=== PATIENT | female | born 1950 | race Caucasian/White ===

== ENCOUNTER 2016-11-28 05:22 | Observation (INO) | payer OTHER ==
[~2016-11-28 05:22] MED LIST: AMIO200T PO; APIX5TAB PO; ASCO500T PO; GABA300C5 PO; GABA600T PO; LOSA100T PO; VITA100018 PO
[2016-11-28] MEDS: POVIDONE IODINE 5% (ANTISEPSIS KIT) 4 APPLICATIONS EACH NARE PRN ×2 (06:00→07:06)
[2016-11-28] MEDS ORDERED: ceFAZolin 2 GM PREMIX 50 ML IV SCH (06:00)
[2016-11-28 06:09] VITALS: BP 160/80; PULSE 72; RESP 18; TEMP 98.6; O2SAT 97
[2016-11-28] MEDS ORDERED: HEPARIN SODIUM - SQ 10,000 UNITS/ML VIAL SQ SCH (06:30)
[2016-11-28] MEDS ORDERED: SODIUM CHLORIDE FLUSH PRN IV FLUSH (06:45)
[2016-11-28] MEDS ORDERED: SUGAMMADEX SODIUM 200 MG/2 ML VIAL IV PUSH ONE ×2 (06:53)
[2016-11-28] MEDS ORDERED: ACETAMINOPHEN 1000 MG/100 ML VIAL IV ONE (06:53)
[2016-11-28] MEDS ORDERED: HYDROmorphone HCL PF 2 MG/ML VIAL ONE (06:53)
[2016-11-28] MEDS ORDERED: DICLOFENAC SODIUM 37.5 MG/ML VIAL IV PUSH ONE (06:53)
[2016-11-28] MEDS ORDERED: SODIUM CHLORID 0.9% 500 ML IV PRN (07:00)
[2016-11-28] MEDS ORDERED: LACTATED RINGER'S 1000 ML IV PRN (07:00)
[2016-11-28] MEDS ORDERED: CHLORHEXIDINE GLUCONATE 2 % 1 PACK (2 CLOTHS) TOPICAL PRN (07:00)
[2016-11-28] MEDS ORDERED: INSULIN HUMAN REGULAR 1,000 UNITS/10 ML VIAL SQ PRN (07:00)
[2016-11-28] MEDS ORDERED: METOPROLOL TARTRATE 25 MG TAB PO PRN (07:00)
[2016-11-28] MEDS ORDERED: FAMOTIDINE 20 MG/2 ML VIAL ONE (07:17)
[2016-11-28] MEDS ORDERED: HEPARIN SODIUM - IV 10,000 UNITS/10 ML VIAL ONE (07:23)
[2016-11-28] MEDS ORDERED: LIDOCAINE 1%/EPINEPHrine 1:100,000 SOLN 50 ML VIAL ONE (07:23)
[2016-11-28] MEDS ORDERED: diphenhydrAMINE HCL 25 MG CAP PO PRN (10:30)
[2016-11-28] MEDS ORDERED: oxyCODONE/ACETAMINOPHEN 5 MG/325 MG TAB PO PRN ×2 (10:30)
[2016-11-28] MEDS ORDERED: HYDROmorphone HCL PF 1 MG/ML VIAL IVP PRN (10:30)
[2016-11-28] MEDS ORDERED: LORazepam 0.5 MG TAB PO PRN (10:30)
[2016-11-28] MEDS ORDERED: ONDANSETRON HCL 4 MG/2 ML VIAL IVP PRN (10:30)
[2016-11-28] MEDS ORDERED: SODIUM CHLORIDE 0.9% FLUSH 10 ML FLUSH IV FLUSH PRN (10:30)
[2016-11-28] MEDS: KETOROLAC TROMETHAMINE 30 MG/ML (IVP) VIAL IVP SCH ×3 (11:00→21:44)
[2016-11-28] MEDS ORDERED: DO NOT ADM ANY ANTICOAGULANT DRUGS PRN (11:15)
[2016-11-28] MEDS: D5-1/2 NS + KCL 20 MEQ INJ 1,000 ML IV SCH ×2 (11:26→21:39)
[2016-11-28] MEDS ORDERED: NORMOSOL R INJ 1,000 ML IV ONE (12:00)
[2016-11-28] MEDS ORDERED: PROPOFOL 200 MG/20 ML AMP IV ONE (12:00)
[2016-11-28] MEDS ORDERED: KETOROLAC TROMETHAMINE 60 MG/2 ML (IM) VIAL IM ONE (12:00)
[2016-11-28] MEDS ORDERED: LACTATED RINGER'S 1000 ML INJ 1,000 ML IV ONE (12:00)
[2016-11-28] MEDS ORDERED: ONDANSETRON HCL 4 MG/2 ML VIAL IV PUSH ONE (12:00)
[2016-11-28] MEDS ORDERED: MIDAZOLAM HCL 2 MG/2 ML VIAL ONE (12:44)
[2016-11-28] MEDS ORDERED: *ONDANSETRON 4 MG VIAL PERIprocedural Use ONLY ONE (12:59)
[2016-11-28 14:00] VITALS: BP 160/75; PULSE 70; RESP 18; TEMP 96.5; O2SAT 93
[2016-11-28] MEDS ORDERED: METOCLOPRAMIDE HCL 10 MG/2 ML VIAL IV ONE (15:30)
[2016-11-28] MEDS ORDERED: LORazepam 2 MG/ML VIAL IV PRN (15:30)
[2016-11-28] MEDS ORDERED: METOCLOPRAMIDE HCL 10 MG/2 ML VIAL IV PRN (15:30)
[2016-11-28 16:00] VITALS: BP 142/78; PULSE 78; RESP 18; TEMP 97.7; O2SAT 94
[2016-11-28 20:00] VITALS: BP 162/75; PULSE 69; RESP 17; TEMP 96.8; O2SAT 93
[2016-11-28] MEDS: SODIUM CHLORIDE FLUSH BID IV FLUSH SCH (21:00)
[2016-11-28] MEDS: SODIUM CHLORIDE 0.9% FLUSH 10 ML FLUSH IV FLUSH SCH (21:00)
[2016-11-28] MEDS ORDERED: GABAPENTIN 300 MG CAP PO SCH (21:00)
[2016-11-29] VITALS: BP 149/65; PULSE 73; RESP 17; TEMP 97.6; O2SAT 94
[2016-11-29 04:00] VITALS: BP 165/73; PULSE 70; RESP 18; TEMP 97.1; O2SAT 98
[2016-11-29] MEDS: KETOROLAC TROMETHAMINE 30 MG/ML (IVP) VIAL IVP SCH (04:26)
[2016-11-29] MEDS: D5-1/2 NS + KCL 20 MEQ INJ 1,000 ML IV SCH (06:17)
--- NOTE | 2016-11-29 06:34 | MP ---
cc: CHINTAN HERNANDEZ MD, JULIE D. MD KIM,KAISER Mallory MD DATE OF SURGERY 11/28/2016 PREOPERATIVE DIAGNOSIS Postmenopausal bleeding. Grade 2 endometrioid adenocarcinoma. POSTOPERATIVE DIAGNOSIS Postmenopausal bleeding. Grade 2 endometrioid adenocarcinoma. PROCEDURE Robotic-assisted laparoscopic hysterectomy, bilateral salpingo-oophorectomy. SURGEON Chintan Hernandez MD FUNNEL [employer]ATER [place] heel sprayer first. ANESTHESIA General endotracheal anesthesia. ESTIMATED BLOOD LOSS 150 cc. IV FLUIDS 2000 cc. URINE OUTPUT 900 cc. HISTORY This is a 66-year-old female with postmenopausal bleeding. Ultrasound showed a thickened endometrial stripe of I believe of 18 mm. CAT scan showed no overt adenopathy or other findings suspicious of malignancy. Endometrial biopsy was performed that showed a grade 2 endometrial adenocarcinoma. She was counseled regarding these findings, treatment recommendations and presents now for surgical management. FINDINGS The uterus was retroverted, sounded to 9 cm, grossly appeared normal. Tubes and ovaries grossly appeared normal. There was no appreciably enlarged pelvic or para-aortic lymph nodes. The peritoneal surfaces were smooth. The liver diaphragm edges were smooth. Omentum, large, small bowel and adjacent mesentery were normal with no implants. There were some diverticulum without evidence of diverticulitis. She had some mild adhesions in the pelvis. The colon was mildly adherent to the left pelvic sidewall. The uterus once removed was evaluated by pathologist. The tumor was approximately 2.5 cm in diameter and was very superficial in the myometrium, estimated depth of invasion only approximately 10%. There was no endocervical extension. STATEMENT OF COMPLEXITY Complexity was increased due to increased BMI. Modifier should be applied accordingly. PROCEDURE The patient was taken to the operating room, placed in dorsal lithotomy position after general endotracheal anesthesia was administered. Time-out was undertaken. The patient was identified by sight recognition and hospital ID bracelet and the proposed procedure was reviewed and confirmed. She was carefully positioned in padded Marlon stirrups. Her arms were padded and secured to the sides. She was further secured to the operating table with eggcrate padding and tape in across chest, over the shoulder fashion. All sites were noted be properly aligned with no malalignments or pressure points. Careful positioning was used as a magnet was placed over her defibrillator pacemaker to prevent erroneous firing from use of cautery. She was prepped in sterile fashion, draped below the waist, placed in high lithotomy position. The cervix was grasped, uterine cavity was sounded, dilated and a large V-Care manipulator was inserted and secured in the usual fashion, a David catheter placed in the bladder. She was returned to low lithotomy position. Change of sterile gloves was undertaken. We completed draping in anticipation of laparoscopy, confirmed that an orogastric tube was in the stomach on suction. With manual elevation of the abdominal wall and direct laparoscopic visualization, a 5-mm cannula was placed in the left upper quadrant and atraumatic entry was confirmed. Carbon dioxide gas was insufflated and under laparoscopic visualization a 12-mm cannula placed in midline above the umbilicus, an 8-mm cannula placed in the right upper quadrant and left lateral quadrant, the original 5 changed for a 8-mm cannula. She was placed in steep Trendelenburg position. Peritoneal washings were obtained for cytology. The anatomy was surveyed with findings as described above. A couple of filmy adhesions were taken down. The small bowel was folded back on its mesenteric root. The mobile portion of the redundant colon was lifted out of the pelvis and cul-de-sac and three Ray-Annmarie sponges were placed around the root of the small bowel mesentery. Robotic system brought into the operative field and attached in the usual fashion. Monopolar scissors, fenestrated bipolar forceps and ProGrasp manipulators were placed in arms #1, 2 and 3 respectively and I took my place at the surgeon's console. Monopolar scissors, fenestrated bipolar forceps and ProGrasp manipulators were placed in arms #1, 2 and 3 and I took my place at the surgeon's console. The right round ligament was isolated, cauterized, transected. The anterior and posterior leaves of the broad ligament were opened. The right ureter was identified, the right infundibulopelvic ligament was isolated to the level of the pelvic brim where it was cauterized and transected. Posterior peritoneum was opened along the right side of the uterus and cervix and the right vesicouterine peritoneum was dissected off the lower uterine segment and cervix. Right uterine vessels were skeletonized, cauterized and transected as were the cardinal, paracervical and uterosacral ligaments. Attention was directed toward the left side. Lysis of adhesions was taken down with sharp dissection to mobilize the colon and free its attachments against left pelvic sidewall and to gain access to the retroperitoneal structures. Left round ligament isolated, cauterized, transected. The anterior and posterior leaves of the broad ligament were opened. The left ureter was identified, the left infundibulopelvic ligament was isolated to the level of the pelvic brim it where was cauterized and transected. Posterior peritoneum was opened along the left side of uterus and cervix and the left vesicouterine peritoneum dissected off the lower uterine segment and cervix. Left uterine vessels were skeletonized, cauterized and transected as were the cardinal, paracervical and uterosacral ligaments. Colpotomy was performed the cervix from the upper vagina and the specimen was withdrawn transvaginally which included uterus, cervix, tubes and ovaries and a pneumooccluder balloon was placed in the vagina to maintain pneumoperitoneum. Instruments 1 and 3 were exchanged for needle drivers as a 0 Vicryl suture was introduced. The vaginal cuff was closed starting at the left corner, full-thickness closure including the posterior uterosacral ligament and edge of the peritoneum, tied via instrument tie. The closure was held on countertraction as a running, continuous full-thickness closure was carried across the vaginal cuff to the contralateral corner where it was similarly secured, tied, the needle was cut and removed. Pelvis was irrigated thoroughly. Small bleeders rendered hemostatic with bipolar cautery. There was a good margin between the bladder edge and the vaginal cuff suture line. Good peristalsis of ureters. The bladder wall integrity was intact and to assist in hemostasis Robert powder was placed across the vaginal cuff and pelvic sidewall. Visual inspection of the pelvis bilaterally in the para-aortic region revealed no adenopathy and the preliminary pathology came back showing a very small, minimally invasive tumor and, as per our preoperative discussion, she was apprehensive about lymphedema and in the absence of high-risk factors we agreed to forego lymphadenectomy as the morbidity was thought to potentially exceed the benefit. Based on these early pathology findings and our discussion, it was felt that all reasonable surgical objectives had been completed. The robotic instruments were removed. The robotic system was disengaged from the operative field. I reentered the bedside under sterile condition. Each of the three Ray-Annmarie sponges that had been placed were now removed. Each were removed individually and inspected and noted to be removed in their entirety. Visual inspection confirmed no remaining foreign objects in the peritoneal cavity. Preliminary counts were correct. The 12-mm fascial defect was closed with interrupted 0 Vicryl sutures using a needle pass apparatus. They were tied securely. This was done under direct laparoscopic visualization and this rendered the fascia completely airtight and hemostatic. The remaining cannulas were withdrawn. Carbon dioxide gas was removed from the peritoneal cavity. 3-0 Vicryl subcutaneous, 3-0 Vicryl subcuticular and Steri-Strips were placed over the incision as it had been confirmed that she had no known skin adhesive sensitivity to Steri-Strips. She was returned to dorsal supine position. Pelvic exam confirmed the vaginal cuff was well supported and hemostatic. There were no vaginal lacerations. The remaining Robert powder was placed across the vaginal cuff suture line and silver nitrate was used at the introitus with superficial mucosal irritation. There were no remaining foreign objects in the vagina. Preliminary and final counts were now correct. She was returned to dorsal supine position and was pending reversal of anesthesia when I left the operating room to precede her to the Post-Anesthesia Care Unit. MD LARS Mays/SSB /10:42 AM /6:16 AM
[2016-11-29 06:56] LABS: AUTOMATED NEUTROPHIL # 13.9 TH/MM3 (1.8-7.7); BASOPHIL % 0.1 % (0.0-2.0); HEMATOCRIT 35.8 % (35.0-46.0); HEMO FLAGS DIFF FINAL; LYMPHOCYTE # 1.3 TH/MM3 (1.0-4.8); MEAN CELL VOLUME 86.9 FL (80.0-100.0); MEAN CORPUSCULAR HEMOGLOBIN 29.9 PG (27.0-34.0); MEAN CORPUSCULAR HGB CONC 34.4 % (32.0-36.0); MONO % 9.7 % (0.0-8.0); NEUT % 82.2 % (16.0-70.0); PLATELET COUNT 244 TH/MM3 (150-450); RED BLOOD COUNT 4.12 MIL/MM3 (4.00-5.30); RED CELL DISTRIBUTION WIDTH 13.3 % (11.6-17.2); WHITE BLOOD COUNT 16.9 TH/MM3 (4.0-11.0)
[2016-11-29] MEDS ORDERED: OXYC1TAB63 PO (07:19)
[2016-11-29 07:27] LABS: BICARBONATE 26.1 MEQ/L (21.0-32.0); POTASSIUM 4.1 MEQ/L (3.5-5.1)
[2016-11-29 08:38] VITALS: BP 157/67; PULSE 68; RESP 18; TEMP 96.2; O2SAT 92
[2016-11-29] MEDS ORDERED: AMIODARONE 200 MG TAB PO SCH (09:00)
[2016-11-29] MEDS ORDERED: GABAPENTIN 300 MG CAP PO SCH (09:00)
[2016-11-29] MEDS ORDERED: LOSARTAN 50 MG TAB PO SCH (09:00)
[2016-11-29] MEDS: SODIUM CHLORIDE FLUSH BID IV FLUSH SCH (09:00)
[2016-11-29] MEDS: SODIUM CHLORIDE 0.9% FLUSH 10 ML FLUSH IV FLUSH SCH (10:31)
[2016-11-29 12:28] VITALS: BP 151/70; PULSE 70; RESP 18; TEMP 97.7; O2SAT 97
[2016-11-29] MEDS ORDERED: LOSA100T PO (15:22)
[2016-11-29 16:26] VITALS: BP 120/58; PULSE 69; RESP 18; TEMP 97.3; O2SAT 96
[2016-11-30] MEDS ORDERED: FAMO20TA2 PO (14:38)
[2016-11-30] MEDS ORDERED: CALC500C16 CHEW (14:38)
--- NOTE | 2016-12-03 11:57 | MD ---
cc: CHINTAN HERNANDEZ MD, JULIE D. MD KIM,KAISER Mallory MD ADMISSION DATE: 11/28/2016 DISCHARGE DATE: 11/29/2016 PROCEDURE 11/28/2016 Robotic-assisted laparoscopic hysterectomy, bilateral salpingo-oophorectomy. DIAGNOSIS Endometrial cancer. HOSPITAL COURSE She did well during the first 24 hours post-op. In's and out's 2320/2450. Labs on post-op day #1, H&H 12.3 and 35.8, platelets 244. Electrolytes pending at the time of this dictation. PHYSICAL EXAMINATION VITAL SIGNS: Afebrile. Pulse 69-78, respirations 15-18, blood pressure 134-165/65-75. O2 saturations while awake 98%. GENERAL: Alert and oriented x3. LUNGS: Clear at apices. Mild basilar rales. CARDIOVASCULAR: Regular rate and rhythm. ABDOMEN: Soft. Incisions clean and dry. TERRAZZO LAYER: No bleeding. EXTREMITIES: Nontender. ASSESSMENT Post-op day #1. FINDINGS Preliminary pathology discussed and reviewed. Activities and restrictions reviewed. Questions answered. She is tolerating oral intake. David catheter has been removed pending voiding. Hemodynamically stable, doing well. PLAN Therefore I anticipate discharge to home. She is to contact our office to schedule follow-up within 2 weeks. She is to resume prior medications. She will have a prescription for Percocet. She is to contact our office between now and the time of scheduled follow-up should she have any questions or problems. MD LARS Mays/RADHA /7:24 AM /11:51 AM
[2017-01-03] MEDS ORDERED: GABA300C5 PO (15:52)
[2017-01-06] MEDS ORDERED: GABA300C5 PO (14:46)
== END 2016-11-29 17:09 | disposition home or self-care (01) ==
LOC: HSDC 05:22 → HSDI 10:21 → HOCB 14:33
PROVIDERS: ADMIT Obstetrics & Gynecology Gynecologic Oncology; ATTEND Obstetrics & Gynecology Gynecologic Oncology
DX: C54.1 Malignant neoplasm of endometrium (principal); N73.6 Female pelvic peritoneal adhesions (postinfective); N95.0 Postmenopausal bleeding; I48.91 Unspecified atrial fibrillation; I10 Essential (primary) hypertension
CPT/HCPCS: 00840; 58552; 80048; 85025; 86850; 86900; 86901; 88112; 88309; 88331; 94150; G0378; J0131; J0690; J1170; J1644; J1885; J2250; J2405; J2765; J3010; J3480; J7120; 88307; 88321; J1130

== ENCOUNTER 2016-11-30 00:42 | Observation (INO) | payer OTHER ==
[2016-11-30] VITALS (11 sets, daily range): BP systolic 129–263; BP diastolic 66–135; PULSE 70–91; RESP 16–20; TEMP 97.6–98.6; O2SAT 92–99
[~2016-11-30] VITALS: Ht 160 cm; Wt 100.0 kg
[~2016-11-30 00:42] MED LIST changes: +OXYC1TAB63 PO
[2016-11-30] MEDS ORDERED: SODIUM CHLOR 0.9% 1000 ML INJ 1,000 ML IV SCH ×2 (01:09→06:25)
[2016-11-30] MEDS ORDERED: SODIUM CHLORIDE 0.9% FLUSH 10 ML FLUSH IV FLUSH PRN ×2 (01:15→06:30)
[2016-11-30] MEDS ORDERED: HYDROmorphone HCL PF 1 MG/ML VIAL IVS ONE (01:15)
[2016-11-30] MEDS ORDERED: ONDANSETRON HCL 4 MG/2 ML VIAL IVP ONE (01:15)
[2016-11-30 01:50] LABS: AUTOMATED NEUTROPHIL # 12.5 TH/MM3 (1.8-7.7); BASOPHIL # 0.1 TH/MM3 (0-0.2); BASOPHIL % 0.4 % (0.0-2.0); EOSINOPHIL % 0.1 % (0.0-4.0); HEMATOCRIT 41.6 % (35.0-46.0); HEMO FLAGS DIFF FINAL; LYMPH % 11.8 % (9.0-44.0); LYMPHOCYTE # 1.9 TH/MM3 (1.0-4.8); MEAN CELL VOLUME 87.4 FL (80.0-100.0); MEAN CORPUSCULAR HEMOGLOBIN 28.3 PG (27.0-34.0); MEAN CORPUSCULAR HGB CONC 32.4 % (32.0-36.0); MONO % 9.7 % (0.0-8.0); PLATELET COUNT 255 TH/MM3 (150-450); RED BLOOD COUNT 4.76 MIL/MM3 (4.00-5.30); RED CELL DISTRIBUTION WIDTH 13.9 % (11.6-17.2)
[2016-11-30 01:59] LABS: ALT (GPT) 26 U/L (10-53); ANION GAP 9 MEQ/L (5-15); AST (GOT) 19 U/L (15-37); BLOOD UREA NITROGEN 18 MG/DL (7-18); CHLORIDE 107 MEQ/L (98-107); GLOMERULAR FILTRATION RATE 68 ML/MIN (>89); POTASSIUM 3.8 MEQ/L (3.5-5.1); SODIUM (NA) 141 MEQ/L (136-145)
[2016-11-30 02:01] LABS: ALKALINE PHOSPHATASE 109 U/L (45-117); TOTAL BILIRUBIN ADULT 0.6 MG/DL (0.2-1.0)
[2016-11-30 02:07] LABS: APTT (PATIENT) 27.3 SEC (24.3-30.1); INTERNATIONAL NORMALIZED RATIO 0.9 RATIO; PROTHROMBIN TIME - PATIENT 10.2 SEC (9.8-11.6)
--- NOTE | 2016-11-30 02:38 | PD ---
HPI Chief Complaint: Chest Pain Time Seen by Provider: 01:09 Travel History International Travel<30 days: No Contact w/Intl Traveler<30days: No Traveled to known affect area: No History of Present Illness HPI 66-year-old female complains of retrosternal chest pain for about 6 hours. No radiation. She also has shortness of breath and dizziness. She underwent hysterectomy yesterday. She notes vomiting a few times yesterday and believes it may be related to her symptoms. Director Digital Strategy was Dr Scales. [facility] Past Medical History Asthma: No Autoimmune Disease: Yes (SARCOIDOSIS) Blood Disorders: No Heart Rhythm Problems: Yes (A fib, v tach) Cancer: Yes (uterine ca, thyroid ca) Cardiovascular Problems: Yes High Cholesterol: No Chemotherapy: No Chest Pain: No Congestive Heart Failure: No COPD: No Diabetes: No Endocrine: Yes Fibromyalgia: Yes Genitourinary: Yes (uterine ca. ) Hepatitis: No Hiatal Hernia: No Hypertension: Yes Immune Disorder: Yes (sarcoidosis) Implanted Vascular Access Dvce: Yes Musculoskeletal: No Neurologic: Yes Psychiatric: No Reproductive: No Respiratory: Yes Radiation Therapy: No Sleep Apnea: Yes Thyroid Disease: Yes (nodules removed) Menopausal: Yes : 2 Para: 2 Past Surgical History Abdominal Surgery: No AICD: Yes (MEDTRONIC) Body Medical Devices: aicd Ear Surgery: No Endocrine Surgery: Yes (PARTIAL THYROIDECTOMY) Eye Surgery: No Genitourinary Surgery: No Gynecologic Surgery: No Hysterectomy: Yes Joint Replacement: No Oral Surgery: No Pacemaker: Yes Thoracic Surgery: Yes (PACER/ICD 07/2016,BREAST SURGERY RIGHT AND LEFT X5) Other Surgery: Yes (aicd placement, cardiac cath, lumpectomies x5, thyroid surgery-nodules rem) Social History Alcohol Use: No Tobacco Use: No Substance Use: No Allergies-Medications (Allergen,Severity, Reaction): Coded Allergies: Adhesives (Verified Allergy, Severe, SKIN RASH, 04/24/09) CRESTOR (Verified Allergy, Severe, Anaphylaxis, 11/28/16) Contrast Media (Verified Allergy, Severe, taccycardia, 11/28/16) Reported Meds & Prescriptions Reported Meds & Active Scripts Active Losartan (Losartan Potassium) 100 Mg Tab 100 Mg PO DAILY Oxycodone-Acetaminophen 5-325 mg Tab 1 Tab PO Q4H PRN Reported Vitamin D3 (Cholecalciferol) 1,000 Unit Tab 1,000 Units PO DAILY Gabapentin 600 Mg Tab 600 Mg PO HS Gabapentin 300 Mg Cap 300 Mg PO DAILY Eliquis (Apixaban) 5 Mg Tab 5 Mg PO BID Amiodarone (Amiodarone HCl) 200 Mg Tab 200 Mg PO DAILY Ascorbic Acid 500 Mg Tab 500 Mg PO DAILY Review of Systems Except as stated in HPI: all other systems reviewed are Neg Physical Exam Narrative GENERAL: 66 yo F, WNWD, moderate distress SKIN: Warm and dry. HEAD: Atraumatic. Normocephalic. EYES: Pupils equal and round. No scleral icterus. No injection or drainage. ENT: No nasal bleeding or discharge. Mucous membranes pink and moist. NECK: Trachea midline. No JVD. CARDIOVASCULAR: Regular rate and rhythm. RESPIRATORY: No accessory muscle use. Clear to auscultation. Breath sounds equal bilaterally. GASTROINTESTINAL: Soft. Diffuse TTP. MUSCULOSKELETAL: Extremities without clubbing, cyanosis, or edema. No obvious deformities. NEUROLOGICAL: Awake and alert. No obvious cranial nerve deficits. Motor grossly within normal limits. Five out of 5 muscle strength in the arms and legs. Normal speech. PSYCHIATRIC: Appropriate mood and affect; insight and judgment normal. Data Data Last Documented VS Vital Signs Date Time Temp Pulse Resp B/P Pulse Ox O2 Delivery O2 Flow Rate FiO2 11/30/16 06:08 76 18 168/72 95 Nasal Cannula 2 11/30/16 00:44 97.6 Orders Complete Blood Count With Diff (11/30/16 01:09) Comprehensive Metabolic Panel (11/30/16 01:09) Lipase (11/30/16 01:09) Prothrombin Time / Inr (Pt) (11/30/16 01:09) Act Partial Throm Time (Ptt) (11/30/16 01:09) Urinalysis - C+S If Indicated (11/30/16 01:09) Iv Access Insert/Monitor (11/30/16 01:09) Ecg Monitoring (11/30/16 01:09) Oximetry (11/30/16 01:09) Ondansetron Inj (Zofran Inj) (11/30/16 01:15) Sodium Chlor 0.9% 1000 Ml Inj (Ns 1000 M (11/30/16 01:09) Sodium Chloride 0.9% Flush (Ns Flush) (11/30/16 01:15) Electrocardiogram (11/30/16 01:09) Hydromorphone Pf Inj (Dilaudid Pf Inj) (11/30/16 01:15) Ventilation & Perfusion Scan (11/30/16 01:11) Ct Abd/Pel W/O Iv Contrast (11/30/16 01:46) Chest, Single Ap (11/30/16 ) Troponin I (11/30/16 03:48) Troponin I (11/30/16 04:52) Hydromorphone Pf Inj (Dilaudid Pf Inj) (11/30/16 05:15) Electrocardiogram (11/30/16 ) Aspirin (Aspirin) (11/30/16 05:30) Nitroglycerin Sl (Nitrostat Sl) (11/30/16 05:30) Admit Order (Ed Use Only) (11/30/16 06:14) Consult Supervisor Fur Floor Worker Oncology (11/30/16 ) Labs Laboratory Tests Test 11/30/16 11/30/16 11/30/16 01:35 04:30 05:00 White Blood Count 16.0 TH/MM3 Red Blood Count 4.76 MIL/MM3 Hemoglobin 13.5 GM/DL Hematocrit 41.6 % Mean Corpuscular Volume 87.4 FL Mean Corpuscular Hemoglobin 28.3 PG Mean Corpuscular Hemoglobin 32.4 % Concent Red Cell Distribution Width 13.9 % Platelet Count 255 TH/MM3 Mean Platelet Volume 8.1 FL Neutrophils (%) (Auto) 78.0 % Lymphocytes (%) (Auto) 11.8 % Monocytes (%) (Auto) 9.7 % Eosinophils (%) (Auto) 0.1 % Basophils (%) (Auto) 0.4 % Neutrophils # (Auto) 12.5 TH/MM3 Lymphocytes # (Auto) 1.9 TH/MM3 Monocytes # (Auto) 1.6 TH/MM3 Eosinophils # (Auto) 0.0 TH/MM3 Basophils # (Auto) 0.1 TH/MM3 CBC Comment DIFF FINAL Differential Comment Prothrombin Time 10.2 SEC Prothromb Time International 0.9 RATIO Ratio Activated Partial 27.3 SEC Thromboplast Time Sodium Level 141 MEQ/L Potassium Level 3.8 MEQ/L Chloride Level 107 MEQ/L Carbon Dioxide Level 25.0 MEQ/L Anion Gap 9 MEQ/L Blood Urea Nitrogen 18 MG/DL Creatinine 0.84 MG/DL Estimat Glomerular Filtration 68 ML/MIN Rate Random Glucose 124 MG/DL Calcium Level 9.0 MG/DL Total Bilirubin 0.6 MG/DL Aspartate Amino Transf 19 U/L (AST/SGOT) Alanine Aminotransferase 26 U/L (ALT/SGPT) Alkaline Phosphatase 109 U/L Troponin I 0.02 NG/ML 0.05 NG/ML Total Protein 7.9 GM/DL Albumin 3.8 GM/DL Lipase 90 U/L Urine Color LIGHT-YELLOW Urine Turbidity CLEAR Urine pH 6.0 Urine Specific Pelsor 1.010 Urine Protein NEG mg/dL Urine Glucose (UA) NEG mg/dL Urine Ketones 10 mg/dL Urine Occult Blood SMALL Urine Nitrite NEG Urine Bilirubin NEG Urine Urobilinogen LESS THAN 2.0 MG/DL Urine Leukocyte Esterase MOD Urine RBC 4 /hpf Urine WBC 3 /hpf Urine Squamous Epithelial <1 /hpf Cells Microscopic Urinalysis Comment CULT NOT INDICATED MDM Medical Decision Making Medical Screen Exam Complete: Yes Emergency Medical Condition: Yes Differential Diagnosis NSTEMI, unstable angina, coronary vasospasm, PE, PTX, aortic dissection, pericarditis, myocarditis, endocarditis, PNA, esophageal disease, aneurysm, musculoskeletal etiologies, anxiety, cocaine/sympathomimetic abuse Narrative Course CBC & BMP Diagram 11/30/16 01:35 LFTs normal Tn 0.02 Second Tn 0.05 UA: no UTI INR 0.9 EKG: Sinus rate 89 normal axis intervals no ischemic injury Last 24 hours Impressions Abdomen/Pelvis CT 11/30/16 0146 Signed Impressions: Service Date/Time: Wednesday, November 30, 2016 02:57 - CONCLUSION: 1. Postoperative hysterectomy, reportedly one day ago. There is some residual air in the soft tissues of the lower pelvis and in the anterior abdominal wall. No free intraperitoneal air is identified. Trace free fluid in the pelvis. 2. No bowel obstruction. No adenopathy. Gallbladder sludge present. Panda Paul MD Lung Scan- Nuclear Medicine 11/30/16 0111 Signed Impressions: Service Date/Time: Wednesday, November 30, 2016 02:26 - CONCLUSION: 1. Negative for pulmonary embolus. Panda Paul MD Chest X-Ray 11/30/16 0000 Signed Impressions: Service Date/Time: Wednesday, November 30, 2016 03:04 - CONCLUSION: 1. Minimal basilar atelectasis. Panda Paul MD Admission for serial enzymes. Pain controlled. d/w Dr Eller. Consult placed for Dr Scales. Diagnosis Primary Impression: Chest pain Qualified Code: R07.9 - Chest pain, unspecified type Additional Impression: Elevated troponin Admitting Information Admitting Physician Requests: Tj Diaz MD November 30, 2016 02:38
--- NOTE | 2016-11-30 02:58 | RADRPT ---
EXAM DATE/TIME: 11/30/2016 02:26 [facility] COMPARISON: No previous studies available for comparison. INDICATIONS : Short of breath for 1 day. DOSE: 8.1 mCi Tc99m MAA IV 1.4 mCi Tc99m DTPA aerosol MEDICAL HISTORY : Carcinoma, thyroid. Uterine cancer. SURGICAL HISTORY : Pacemaker. Thyroidectomy. Hysterectomy. ENCOUNTER: Initial ACUITY: 1 day PAIN SCALE: 2/10 LOCATION: Bilateral chest TECHNIQUE: Following five minutes of tidal breathing of DTPA aerosol, planar images of the lungs were performed in eight projections. The patient was then injected with MAA, and eight-view perfusion scan was perf ormed. FINDINGS: There is a homogeneous pattern of aerosol delivery to the periphery of both lungs. No focal ventilat ory defects are seen. The perfusion lung scan demonstrates a homogenous pattern of uptake in both lungs. No segmental or s ubsegmental defects are seen. CONCLUSION: 1. Negative for pulmonary embolus. Panda Paul MD on November 30, 2016 at 2:56 Board Certified Radiologist. This report was verified electronically.
--- NOTE | 2016-11-30 03:17 | RADRPT ---
EXAM DATE/TIME: 11/30/2016 02:57 [facility] COMPARISON: No previous studies available for comparison. INDICATIONS : Abdominal pain status post hysterectomy, one day. ORAL CONTRAST: No oral contrast ingested. RADIATION DOSE: 25.37 CTDIvol (mGy) MEDICAL HISTORY : Carcinoma, thyroid. Hypertension. Sarcoidosis. Carcinoma, uterine. SURGICAL HISTORY : Hysterectomy. Pacemaker. ENCOUNTER: Initial ACUITY: 1 day PAIN SCALE: 5/10 LOCATION: abdomen TECHNIQUE: Volumetric scanning of the abdomen and pelvis was performed. Using automated exposure control and ad justment of the mA and/or kV according to patient size, radiation dose was kept as low as reasonably achievable to obtain optimal diagnostic quality images. FINDINGS: There is mild atelectasis and scarring at the lung bases. Pacer lead tip in right ventricle. No acute findings in the liver, spleen, adrenals, kidneys or pancreas. There is dependent sludge with in the gallbladder. No biliary ductal dilatation. There is air in the anterior abdominal wall presumably related to recent hysterectomy. No free intrap eritoneal air is identified. No bowel obstruction. Trace free fluid in the pelvis. CONCLUSION: 1. Postoperative hysterectomy, reportedly one day ago. There is some residual air in the soft tissues of the lower pelvis and in the anterior abdominal wall. No free intraperitoneal air is identified. T race free fluid in the pelvis. 2. No bowel obstruction. No adenopathy. Gallbladder sludge present. Panda Paul MD on November 30, 2016 at 3:10 Board Certified Radiologist. This report was verified electronically.
--- NOTE | 2016-11-30 03:23 | RADRPT ---
EXAM DATE/TIME: 11/30/2016 03:04 [facility] COMPARISON: No previous studies available for comparison. INDICATIONS : Shortness of breath. MEDICAL HISTORY : Carcinoma, thyroid. Carcinoma, uterine. SURGICAL HISTORY : Pacemaker. Hysterectomy. Thyroidectomy. ENCOUNTER: Initial ACUITY: 1 day PAIN SCORE: 0/10 LOCATION: Bilateral chest FINDINGS: A single view of the chest demonstrates pacer lead overlying right ventricle. Cardiomegaly. Minimal b allie atelectasis. CONCLUSION: 1. Minimal basilar atelectasis. Panda Paul MD on November 30, 2016 at 3:16 Board Certified Radiologist. This report was verified electronically.
[2016-11-30] MEDS ORDERED: HYDROmorphone HCL PF 1 MG/ML VIAL IV PUSH ONE (05:15)
[2016-11-30 05:28] LABS: BLOOD, URINE SMALL (NEG); COMMENT (UR) CULT NOT INDICATED; CULTURE IF INDICATED CULT NOT INDICATED; GLUCOSE,URINE NEG (NEG); KETONE, URINE 10 mg/dL (NEG); NITRITE,URINE NEG (NEG); SQUAMOUS EPITHELIAL CELL URINE <1 /hpf (0-5); URINE COLOR LIGHT-YELLOW (YELLW/STRAW)
[2016-11-30] MEDS ORDERED: ASPIRIN 325 MG TAB PO ONE (05:30)
[2016-11-30] MEDS: NITROGLYCERIN 0.4 MG SL 25 TABS/BTL SL SCH ×3 (05:41→06:07)
[2016-11-30] MEDS ORDERED: oxyCODONE/ACETAMINOPHEN 5 MG/325 MG TAB PO PRN ×2 (06:30)
[2016-11-30] MEDS ORDERED: HYDROmorphone HCL PF 1 MG/ML VIAL IV PUSH PRN (06:30)
[2016-11-30] MEDS ORDERED: BISACODYL 10 MG SUPP RECTAL PRN (06:30)
[2016-11-30] MEDS ORDERED: ACETAMINOPHEN 325 MG TAB PO PRN (06:30)
[2016-11-30] MEDS ORDERED: NITROGLYCERIN 2% OINT 1 GM PACKET TOPICAL PRN (06:30)
[2016-11-30] MEDS ORDERED: ONDANSETRON HCL 4 MG/2 ML VIAL IVP PRN (06:30)
[2016-11-30] MEDS ORDERED: ENALAPRILAT 1.25 MG/ML VIAL IV PRN (08:00)
[2016-11-30] MEDS ORDERED: cloNIDine HCL 0.1 MG TAB PO PRN (08:00)
[2016-11-30] MEDS ORDERED: NS + KCL 20 MEQ INJ 1,000 ML IV SCH (08:00)
[2016-11-30] MEDS ORDERED: APIXABAN 5 MG TABLET PO SCH (09:00)
[2016-11-30] MEDS ORDERED: GABAPENTIN 300 MG CAP PO SCH ×2 (09:00→21:00)
[2016-11-30] MEDS ORDERED: SODIUM CHLORIDE 0.9% FLUSH 10 ML FLUSH IV FLUSH SCH (09:00)
[2016-11-30] MEDS ORDERED: ASCORBIC ACID 500 MG TAB PO SCH (09:00)
[2016-11-30] MEDS ORDERED: CHOLECALCIFEROL (VIT D3) 1000 UNIT TAB PO SCH (09:00)
[2016-11-30] MEDS ORDERED: AMIODARONE 200 MG TAB PO SCH (09:00)
[2016-11-30] MEDS ORDERED: FAMOTIDINE 20 MG TAB PO SCH (14:15)
[2016-11-30] MEDS ORDERED: ALUMINUM/MAGNESIUM/SIMETH 30 ML CUP PO PRN (14:15)
[2016-11-30] MEDS ORDERED: CALCIUM CARBONATE 500 MG CHEWABLE TAB CHEW PRN (14:15)
--- NOTE | 2016-11-30 14:34 | HHI.HP ---
HPI Service [facility] Primary Care Physician Azeb King MD Admission Diagnosis Chest Pain; Elevated Tn Diagnoses: Chief Complaint: Chest pain Travel History International Travel<30 Days: No Contact w/Intl Traveler <30 Da: No Traveled to Known Affected Are: No History of Present Illness This is a 66-year-old female who presented with retrosternal chest pain for about 6 hours relieved after receiving aspirin, Zofran, nitroglycerin and Dilaudid in the emergency department. Patient was just released from this hospital after undergoing hysterectomy 2 days ago. During the day of surgery, patient had several episodes of vomiting and was discharged home improved. A few hours after she arrived home, she developed indigestion/gas pain scale of 9 out of 10 without radiation and associated signs and symptoms of nausea, vomiting, palpitations, shortness of breath, dizziness and diaphoresis. Patient has history of fibromyalgia, uterine cancer, sarcoidosis, sleep apnea, hypertension, A. fib and V. tach diagnosed in July 2016. She underwent AICD placement and unremarkable cardiac catheterization by Dr. Maldonado. States she has been doing well on amiodarone. She was taken off Eliquis 3 months ago because of uterine bleeding. At this time, she feels better and wants to go home. Earlier right after lunch she developed mild indigestion scale of 5 out of 10 Review of Systems Except as stated in HPI: all other systems reviewed are Neg Past Family Social History Past Medical History As previously mentioned Past Surgical History As previously mentioned. Partial thyroidectomy breast surgery Reported Medications Vitamin D3 (Cholecalciferol) 1,000 Unit Tab 1,000 Units PO DAILY Gabapentin 600 Mg Tab 600 Mg PO HS Gabapentin 300 Mg Cap 300 Mg PO DAILY Eliquis (Apixaban) 5 Mg Tab 5 Mg PO BID (patient has not taken for 3 months) Amiodarone (Amiodarone HCl) 200 Mg Tab 200 Mg PO DAILY Ascorbic Acid 500 Mg Tab 500 Mg PO DAILY Allergies: Coded Allergies: Adhesives (Verified Allergy, Severe, SKIN RASH, 04/24/09) CRESTOR (Verified Allergy, Severe, Anaphylaxis, 11/28/16) Contrast Media (Verified Allergy, Severe, taccycardia, 11/28/16) Family History A. fib Social History Does not smoke or drink Physical Exam Vital Signs Vital Signs Date Time Temp Pulse Resp B/P Pulse Ox O2 Delivery O2 Flow Rate FiO2 11/30/16 11:42 98.6 82 18 129/66 95 11/30/16 07:20 98.1 82 17 156/71 98 Room Air 11/30/16 07:20 82 17 98 Room Air 11/30/16 07:00 16 11/30/16 06:08 76 18 168/72 95 Nasal Cannula 2 11/30/16 05:48 87 16 174/80 94 Nasal Cannula 2 11/30/16 05:22 89 16 188/86 99 Nasal Cannula 2 11/30/16 01:17 90 20 263/135 95 Room Air 11/30/16 01:04 91 20 95 11/30/16 00:44 97.6 90 20 247/110 95 Physical Exam GENERAL: This is a well-nourished, well-developed patient, in no apparent distress. SKIN: No rashes, ecchymoses or lesions. Cool and dry. HEAD: Atraumatic. Normocephalic. No temporal or scalp tenderness. EYES: Pupils equal round and reactive. Extraocular motions intact. No scleral icterus. No injection or drainage. ENT: Nose without bleeding, purulent drainage or septal hematoma. Throat without erythema, tonsillar hypertrophy or exudate. Uvula midline. Airway patent. NECK: Trachea midline. No JVD or lymphadenopathy. Supple, nontender, no meningeal signs. CARDIOVASCULAR: Regular rate and rhythm without murmurs, gallops, or rubs. No chest wall tenderness RESPIRATORY: Clear to auscultation. Breath sounds equal bilaterally. No wheezes , rales, or rhonchi. GASTROINTESTINAL: Abdomen soft, non-tender, nondistended. No guarding. Trocar sites without signs of infection MUSCULOSKELETAL: Extremities without clubbing, cyanosis, or edema. No joint tenderness, effusion, or edema noted. No calf tenderness. Negative Homans sign bilaterally. NEUROLOGICAL: Awake and alert. Cranial nerves II through XII intact. Motor and sensory grossly within normal limits. Five out of 5 muscle strength in all muscle groups. Normal speech. Laboratory Laboratory Tests Test 11/30/16 11/30/16 11/30/16 11/30/16 01:35 04:30 05:00 12:51 White Blood Count 16.0 Red Blood Count 4.76 Hemoglobin 13.5 Hematocrit 41.6 Mean Corpuscular Volume 87.4 Mean Corpuscular Hemoglobin 28.3 Mean Corpuscular Hemoglobin 32.4 Concent Red Cell Distribution Width 13.9 Platelet Count 255 Mean Platelet Volume 8.1 Neutrophils (%) (Auto) 78.0 Lymphocytes (%) (Auto) 11.8 Monocytes (%) (Auto) 9.7 Eosinophils (%) (Auto) 0.1 Basophils (%) (Auto) 0.4 Neutrophils # (Auto) 12.5 Lymphocytes # (Auto) 1.9 Monocytes # (Auto) 1.6 Eosinophils # (Auto) 0.0 Basophils # (Auto) 0.1 CBC Comment DIFF FINAL Differential Comment Prothrombin Time 10.2 Prothromb Time International 0.9 Ratio Activated Partial 27.3 Thromboplast Time Sodium Level 141 Potassium Level 3.8 Chloride Level 107 Carbon Dioxide Level 25.0 Anion Gap 9 Blood Urea Nitrogen 18 Creatinine 0.84 Estimat Glomerular Filtration 68 Rate Random Glucose 124 Calcium Level 9.0 Total Bilirubin 0.6 Aspartate Amino Transf 19 (AST/SGOT) Alanine Aminotransferase 26 (ALT/SGPT) Alkaline Phosphatase 109 Troponin I 0.02 0.05 0.06 Total Protein 7.9 Albumin 3.8 Lipase 90 Urine Color LIGHT-YELLOW Urine Turbidity CLEAR Urine pH 6.0 Urine Specific [place] 1.010 Urine Protein NEG Urine Glucose (UA) NEG Urine Ketones 10 Urine Occult Blood SMALL Urine Nitrite NEG Urine Bilirubin NEG Urine Urobilinogen LESS THAN 2.0 Urine Leukocyte Esterase MOD Urine RBC 4 Urine WBC 3 Urine Squamous Epithelial <1 Cells Microscopic Urinalysis Comment CULT NOT INDICATED Result Diagram: 11/30/16 01311/30/16134 Imaging EKG tracings interpreted by me with sinus rhythm no acute ST-T changes Chest x-ray image interpreted by me with no acute cardiopulmonary disease Last Impressions Abdomen/Pelvis CT 11/30/16 0146 Signed Impressions: Service Date/Time: Friday, November 30, 2016 02:57 - CONCLUSION: 1. Postoperative hysterectomy, reportedly one day ago. There is some residual air in the soft tissues of the lower pelvis and in the anterior abdominal wall. No free intraperitoneal air is identified. Trace free fluid in the pelvis. 2. No bowel obstruction. No adenopathy. Gallbladder sludge present. Panda Paul MD Lung Scan-VQ Nuclear Medicine 11/30/16 0111 Signed Impressions: Service Date/Time: Wednesday, November 30, 2016 02:26 - CONCLUSION: 1. Negative for pulmonary embolus. Panda Paul MD Chest X-Ray 11/30/16 0000 Signed Impressions: Service Date/Time: Wednesday, November 30, 2016 03:04 - CONCLUSION: 1. Minimal basilar atelectasis. Panda Paul MD Assessment and Plan Problem List: (1) Chest pain ICD Code: R07.9 Status: Acute Assessment and Plan This is a 66-year-old female who presented with retrosternal chest pain for about 6 hours relieved after receiving aspirin, Zofran, nitroglycerin and Dilaudid in the emergency department. Patient was just released from this hospital after undergoing hysterectomy 2 days ago. During the day of surgery, patient had several episodes of vomiting and was discharged home improved. A few hours after she arrived home, she developed indigestion/gas pain scale of 9 out of 10 without radiation and associated signs and symptoms of nausea, vomiting, palpitations, shortness of breath, dizziness and diaphoresis. Atypical chest pain. Chest x-ray, VQ scan and EKG unremarkable. Troponin 2 negative but last troponin is 0.06. Sounds like dyspepsia. Start Pepcid, when necessary Maalox and calcium. Repeat troponin if negative patient can be discharged home . We'll also interrogate device history of pacemaker and AICD. Negative cardiac catheterization in July 2016 per patient Leukocytosis likely reactive. Monitor Mild hyperglycemia. Obtain fasting glucose. Outpatient follow-up Uterine cancer status post hysterectomy [address] findings noted. She is stable Chronic medical conditions of fibromyalgia, sarcoidosis, sleep apnea, hypertension, A. fib and V. tach diagnosed in July 2016. She underwent AICD placement and unremarkable cardiac catheterization by Dr. Maldonado. States she has been doing well on amiodarone. She was taken off Eliquis 3 months ago because of uterine bleeding, patient to follow-up with Dr. Maldonado if Eliquis needs to be restarted. She was cleared by [employer]ACHINE [employer]PERATOR. DVT prophylaxis with SCD and early ambulation Discussed Condition With Patient, sister and nursing staff Discharge patient to home Condition on discharge: Improved Regular Diet as tolerated Ad Zarina activity Rx written: Calcium and Pepcid Follow-up with primary care physician in 3 days Problem Qualifiers (1) Chest pain: Qualified Code: R07.9 - Chest pain, unspecified type Desmond Klein MD November 30, 2016 14:34
[2016-11-30] MEDS ORDERED: CALC500C16 CHEW (14:38)
[2016-11-30] MEDS ORDERED: FAMO20TA2 PO (14:38)
--- NOTE | 2016-11-30 14:38 | HHI.DCPOC ---
Discharge Care Plan Diagnosis: (1) Chest pain Your Health Problems Are: Difficulty with ADL Chest Pain Exercise Tolerance Goals to Promote Your Health * To prevent worsening of your condition and complications * To maintain your health at the optimal level Directions to Meet Your Goals Take your medications as prescribed Follow your dietary instruction Follow activity as directed Keep your appointments as scheduled Take your immunizations and boosters as scheduled If your symptoms worsen call your PCP, if no PCP go to Urgent Care Center or Emergency Room Smoking is Dangerous to Your Health. Avoid second hand smoke Call the 24-hour hour crisis hotline for domestic abuse at Desmond Klein MD November 30, 2016 14:38
[2016-11-30] MEDS ORDERED: LOSARTAN 50 MG TAB PO SCH (15:00)
--- NOTE | 2016-11-30 16:35 | EKG ---
Date Performed: 11/30/2016 Time Performed: 01:00:01 PTAGE: 66 years EKG: Sinus rhythm RSR' Compared to prior tracing no significant change NORMAL ECG PREVIOUS TRACING : 03/05/2010 21.22 DOCTOR: Hattie Carter Interpretating Date/Time 11/30/2016 16:34:49
--- NOTE | 2016-11-30 16:37 | EKG ---
Date Performed: 11/30/2016 Time Performed: 05:44:36 PTAGE: 66 years EKG: Sinus rhythm RSR' Baseline artifact POSSIBLE INFERIOR MYOCARDIAL INFARCTION Compared to prior tracing no signific ant change BORDERLINE ECG PREVIOUS TRACING : 11/30/2016 01.00 DOCTOR: Hattie Carter Interpretating Date/Time 11/30/2016 16:37:21
--- NOTE | 2016-12-01 08:54 | MB ---
cc: CHINTAN HERNANDEZ MD, JULIE D. MD KIM,KAISER Mallory MD DATE OF CONSULTATION: 12/01/2016 PHYSICIAN REQUESTING CONSULT Tj Leslie MD. REASON FOR CONSULTATION Recent hysterectomy. Patient known to me. REASON FOR ADMISSION Chest pain. HISTORY OF PRESENT ILLNESS: I was asked to see Miya Pearce. She is now three days out from robotic hysterectomy, bilateral salpingo-oophorectomy for endometrial cancer. Consult was requested yesterday as she presented to the emergency room with chest pain. I am in the hospital now to see her. I have reviewed her findings. Apparently she has been discharged to home after less than 24 hour observation. I was not contacted regarding her status. In review, it appears as though she had a negative CT angiogram. She had troponin levels that were normal 0.02 to 0.05 with one isolated exception of 0.06. EKG was interpreted as possible inferior myocardial infarction, compared to prior tracing, no change was noted. Initial EKG was interpreted as normal. No change from prior EKG. Chest x-ray showed mild atelectasis. CAT scan of the abdomen and pelvis showed postop changes. Small amount of free air consistent with recent surgery. No intestinal obstruction or extravasation of dye. LABORATORY DATA: H&H 13.5, 41.6, white count 16. Platelet count 255. Electrolytes, potassium 3.8, BUN and creatinine 18, and 0.84. Glucose slightly elevated at 124. ASSESSMENT: Postoperative day #3, hysterectomy. No overt immediate or obvious problems directly related to surgery. Chest pain, with apparent myocardial infarction or pulmonary emboli excluded to the satisfaction of the primary medical team. No evidence of pneumonia. Recent history of vomiting which may be in part contributing to her epigastric discomfort. PLAN: She has already been discharged to home. She was given instructions and follow up by the emergency room and medicine physician. She is scheduled to follow up with us from a gynecologic standpoint in two weeks. MD LARS Mays/BARBARA /6:44 AM /8:47 AM
[2017-01-03] MEDS ORDERED: GABA300C5 PO (15:52)
[2017-01-06] MEDS ORDERED: GABA300C5 PO (14:46)
== END 2016-11-30 21:11 | disposition home or self-care (01) ==
LOC: NEPE 00:42 → NEDA 06:15 → NEPHCDU 08:04
PROVIDERS: ADMIT Internal Medicine; ATTEND Internal Medicine
DX: R07.9 Chest pain, unspecified (principal); R11.10 Vomiting, unspecified; R79.89 Other specified abnormal findings of blood chemistry; Z98.890 Other specified postprocedural states; R73.9 Hyperglycemia, unspecified; Z90.710 Acquired absence of both cervix and uterus; M79.7 Fibromyalgia; Z85.42 Personal history of malignant neoplasm of other parts of uterus; Z95.0 Presence of cardiac pacemaker
CPT/HCPCS: 71010; 74176; 78582; 80053; 81001; 83690; 84484; 85025; 85610; 85730; 93005; 96361; 96374; 96375; 96376; 99285; A9540; A9567; G0378; J1170; J2405; J3480; J7030

== ENCOUNTER 2017-02-20 10:11 | Emergency (ER) | payer OTHER ==
[~2017-02-20 10:11] MED LIST changes: -ASCO500T PO; -GABA600T PO; -OXYC1TAB63 PO
[2017-02-20 10:28] VITALS: BP 188/94; PULSE 71; RESP 22; TEMP 98.1; O2SAT 97
--- NOTE | 2017-02-20 10:54 | PD ---
HPI Chief Complaint: Musculoskeletal Complaint Time Seen by Provider: 10:42 Travel History International Travel<30 days: No Contact w/Intl Traveler<30days: No Traveled to known affect area: No History of Present Illness HPI This 66-year-old female is complaining of pain in her right knee. She says she was dancing on Friday and she thinks she might of twisted it. She has some pain with weightbearing. She has been able to walk. She has a history of atrial fibrillation and is on blood thinners. She has also had ventricular tachycardia and has a defibrillator. She had noted some bruising in the back of her leg. PFSH Past Medical History Asthma: No Autoimmune Disease: Yes (SARCOIDOSIS) Blood Disorders: No Anxiety: No Depression: No Heart Rhythm Problems: Yes (A fib, v tach) Cancer: Yes (uterine ca, thyroid ca) Cardiovascular Problems: Yes High Cholesterol: No Chemotherapy: No Chest Pain: No Congestive Heart Failure: No COPD: No Diabetes: No Endocrine: Yes Fibromyalgia: Yes Genitourinary: Yes (uterine ca. ) Hepatitis: No Hiatal Hernia: No Hypertension: Yes Immune Disorder: Yes (sarcoidosis) Implanted Vascular Access Dvce: Yes Musculoskeletal: No Neurologic: Yes Psychiatric: No Reproductive: No Respiratory: Yes Radiation Therapy: No Sleep Apnea: Yes Thyroid Disease: Yes (nodules removed) Menopausal: Yes : 2 Para: 2 Past Surgical History Abdominal Surgery: No AICD: Yes (MEDTRONIC) Body Medical Devices: aicd Ear Surgery: No Endocrine Surgery: Yes (PARTIAL THYROIDECTOMY) Eye Surgery: No Genitourinary Surgery: No Gynecologic Surgery: No Hysterectomy: Yes Joint Replacement: No Oral Surgery: No Pacemaker: Yes Thoracic Surgery: Yes (PACER/ICD 07/2016,BREAST SURGERY RIGHT AND LEFT X5) Other Surgery: Yes (aicd placement, cardiac cath, lumpectomies x5, thyroid surgery-nodules rem) Social History Alcohol Use: No Tobacco Use: No Substance Use: No Allergies-Medications (Allergen,Severity, Reaction): Coded Allergies: Adhesives (Verified Allergy, Severe, SKIN RASH, 02/20/17) CRESTOR (Verified Allergy, Severe, Anaphylaxis, 02/20/17) Contrast Media (Verified Allergy, Severe, taccycardia, 02/20/17) Reported Meds & Prescriptions Reported Meds & Active Scripts Active Losartan (Losartan Potassium) 100 Mg Tab 100 Mg PO DAILY Gabapentin 300 Mg Cap 300 Mg PO TID Reported Vitamin D3 (Cholecalciferol) 1,000 Unit Tab 1,000 Units PO DAILY Eliquis (Apixaban) 5 Mg Tab 5 Mg PO BID Amiodarone (Amiodarone HCl) 200 Mg Tab 200 Mg PO DAILY Review of Systems General / Constitutional: No: Fever, Chills Eyes: No: Diploplia, Blurred Vision HENT: No: Headaches Cardiovascular: No: Chest Pain or Discomfort Gastrointestinal: No: Nausea, Vomiting Musculoskeletal: Positive: Myalgias, Arthralgias, Pain Physical Exam Narrative GENERAL: Well-developed female SKIN: Focused skin assessment warm/dry. HEAD: Atraumatic. Normocephalic. EYES: Pupils equal and round. No scleral icterus. No injection or drainage. ENT: No nasal bleeding or discharge. Mucous membranes pink and moist. NECK: Trachea midline. No JVD. . MUSCULOSKELETAL: No obvious deformities. No clubbing. No cyanosis. No edema. Examination of the right knee shows no deformity. He is able to flex and extend the knee without much pain there is tenderness in the medial aspect of the knee. In the popliteal fossa there are small varicose veins. There is no gross instability of the knee there is no pain to palpation of the calf or the thigh muscles. NEUROLOGICAL: Awake and alert. No obvious cranial nerve deficits. Motor grossly within normal limits. Normal speech. PSYCHIATRIC: Appropriate mood and affect; insight and judgment normal. Data Data Last Documented VS Vital Signs Date Time Temp Pulse Resp B/P Pulse Ox O2 Delivery O2 Flow Rate FiO2 02/20/17 10:28 98.1 71 22 188/94 97 Orders Knee, Complete (4vws) (02/20/17 10:42) [facility] Medical Decision Making Medical Screen Exam Complete: Yes Emergency Medical Condition: Yes Medical Record Reviewed: Yes Differential Diagnosis Differential includes muscular strain, ligamentous strain, DVT Narrative Course Examination is not suspicious for DVT and the patient is on blood thinners so I have not ordered a ultrasound. I did order an x-ray to assess for possible bony injury. X-ray has been read as negative. I believe the patient has a strain of her medial collateral ligament. Diagnosis Primary Impression: Knee strain Qualified Code: S86.911A - Strain of right knee, initial encounter Disposition: DISCHARGE HOME Condition: Stable Arnold Thompson MD Feb 20, 2017 10:54
--- NOTE | 2017-02-20 11:11 | RADRPT ---
EXAM DATE/TIME: 02/20/2017 10:50 [facility] COMPARISON: No previous studies available for comparison. INDICATIONS : Twisted knee while dancing last Friday night. MEDICAL HISTORY : Carcinoma, thyroid. Uterine cancer. SURGICAL HISTORY : Pacemaker. Thyroidectomy. Hysterectomy ENCOUNTER: Initial ACUITY: 4 - 6 days PAIN SCORE: 6/10 LOCATION: Right Knee, medial FINDINGS: There is no evidence of fracture, dislocation or bony destruction. No joint effusion is identified. T here is mild degenerative arthritic change. CONCLUSION: No acute bony injury Gopal Ortega MD on February 20, 2017 at 11:08 Board Certified Radiologist. This report was verified electronically.
[2017-04-01] MEDS ORDERED: GABA300C5 PO (15:06)
[2017-04-25] MEDS ORDERED: AMIO200T PO (10:43)
[2017-04-25] MEDS ORDERED: APIX5TAB PO (10:43)
[2017-04-25] MEDS ORDERED: INFL1INJ56 IM (10:43)
== END 2017-02-20 11:44 | disposition home or self-care (01) ==
LOC: PHED 10:11
DX: S86.911A Strain of unspecified muscle(s) and tendon(s) at lower leg level, right leg, initial encounter (principal); Z95.810 Presence of automatic (implantable) cardiac defibrillator; D86.9 Sarcoidosis, unspecified; I47.2 Ventricular tachycardia; I48.91 Unspecified atrial fibrillation; M79.7 Fibromyalgia; I10 Essential (primary) hypertension; X50.3XXA Overexertion from repetitive movements, initial encounter; Y93.41 Activity, dancing; Y92.838 Other recreation area as the place of occurrence of the external cause
CPT/HCPCS: 73564; 99283

== ENCOUNTER 2018-04-21 05:21 | Inpatient (IN) ==
[2018-04-21] MEDS ORDERED: Chlorhexidine 4% Topical 120 APPLIC/120 ML Bottle TOPICAL SCH (06:00)
[2018-04-21] MEDS ORDERED: ceFAZolin 2 GM Premix Inj 2 GM/50 ML PIGGYBACK IV.SIG SCH (06:00)
[2018-04-21] MEDS ORDERED: Chlorhexidine Gluconate 2% 1 Pack (2 Cloths) TOPICAL ONE (06:01)
[2018-04-21] MEDS ORDERED: Metoprolol Tartrate 25 MG Tablet PO ONE (06:01)
[2018-04-21] MEDS ORDERED: Bupivacaine Liposomal PF 1.3% Inj 20 ML Vial ONE (06:06)
[2018-04-21] MEDS ORDERED: Bupivacaine 0.5% Inj 50 ML MDV Vial ONE (06:07)
[2018-04-21] MEDS ORDERED: Sodium Chlor 0.9% Inj 80 ML, Bupivacaine Liposo PF 1.3% Inj 20 ML P-ARTICULR SCH ×2 (06:15)
[2018-04-21] MEDS: Sodium Chlor 0.9% Inj 500 ML IV.SIG SCH (06:19)
[2018-04-21] MEDS ORDERED: Bupivacaine/Dextrose 0.75% Inj 2 ML Ampul ONE (06:31)
[2018-04-21] MEDS ORDERED: Tranexamic Acid Inj 0 MG in Sodium Chlor 0.9% Inj 100 ML IV.SIG ONE (06:44)
[2018-04-21] MEDS ORDERED: Acetaminophen 325 MG Tablet PO PRN (06:44)
[2018-04-21] MEDS ORDERED: Aluminum/Magnesium/Simethacone Susp 30 ML UDC PO PRN (06:44)
[2018-04-21] MEDS ORDERED: Bisacodyl 10 MG Supp RECTAL PRN (06:44)
[2018-04-21] MEDS ORDERED: Morphine Inj 4 MG/ML Vial IV.PUSH PRN (06:44)
--- NOTE | 2018-04-21 06:47 | P.DCO ---
- Physical Therapy Physical Therapy: Gait training Knee: Total knee, Protocol: Right, Gait training, Full weight bearing Right Lower Extremity Weight Bearing: Weight bearing as tolerated Right Lower Extremity Range of Motion: Active ROM (Active, active assisted and passive range of motion. Range of motion goal is 0 degrees extension to 130 degrees of flexion. Range of motion achieved in the operating room was 0 degrees extension to 135 degrees of flexion.) - Nursing Nursing: Dressing changes Dressing changes: Daily dressing change, Coverderm/Primapore Additional instructions: Do not remove Dermabond Prineo (the tape on the wound). - Certification Need for Home Health services: I have seen patient Miya Pearce on 04/21/18. My clinical findings support the need for the requested home health care services because: Need for Home Health Services: Deconditioned with increased weakness, Limited ability to care for self, High risk of falls Homebound Certification: I certify that my clinical findings support that this patient is homebound because: Homebound Certification: Post-op weakness, Unsteady gait/balance, Unsafe to leave home unassisted
[2018-04-21] MEDS ORDERED: hydrALAZINE HCl Inj 20 MG/ML Vial IV.PUSH ONE (06:59)
[2018-04-21] MEDS ORDERED: Lidocaine PF 1% Inj 5 ML Syringe OTHER ONE (06:59)
[2018-04-21] MEDS: Tranexamic Acid Inj 1,035 MG in Sodium Chlor 0.9% Inj 100 ML IV.SIG SCH ×2 (07:15→10:15)
[2018-04-21] MEDS ORDERED: Tranexamic Acid Inj 1,035 MG in Sodium Chlor 0.9% Inj 100 ML IV.SIG SCH (08:59)
--- NOTE | 2018-04-21 09:12 | P.OP ---
- Preoperative Diagnosis (1) Primary osteoarthritis of right knee - Postoperative Diagnosis (1) Primary osteoarthritis of right knee Date of procedure: 04/21/18 Procedure: Right total knee arthroplasty using Marj Triathlon prosthesis (uncemented) Anesthesia: GETA, regional (Adductor canal block), local (Exparel) Surgeon: Weston Aguirre MD Die Stamper: Deven Silva Estimated blood loss (mL): 250 Tourniquet time (min): 0 Pathology: none sent Operation and Findings: Indications and Findings: This 68-year-old woman has had long-standing arthritis in her right knee at least from a year ago. She has not responded to conservative measures including arthroscopic surgery by another orthopedic surgeon, analgesics, activity modification, physical therapy and ambulatory aids. Because of her use of anticoagulants she has been unable to take nonsteroidal anti-inflammatory agents. She has difficulty ascending and descending stairs, standing from a seated position and vice versa, walking any distance. Her ambulation tolerance is is actually up to about 3 miles but this is with pain. Physical findings show degenerative varum with medial laxity, crepitation on motion, tenderness on motion. Radiographic findings show loss of articular cartilage to [id number] in the medial compartment with subchondral sclerosis and osteophytes in multiple compartments. Operative findings: There is severe loss of articular cartilage down to exposed subchondral bone in the medial compartment with irregularity and cartilaginous change in the patellofemoral and lateral compartments. There were osteophytes. There was subchondral sclerosis. The prosthesis used was a Marj Triathlon prosthesis. The femur was a size 3, cruciate retaining, uncemented. The tibial baseplate was a size 4 Tritanium with a 9 mm, cruciate retaining, X3 polyethylene spacer. The patella was a size 32 mm asymmetric Tritanium backed. The patient was brought to the clean-air operating suite after administration of a regional anesthetic by adductor canal block. A spinal anesthetic was administered. The position was supine with a small bolster under the hip on the operative side. A pneumatic tourniquet was applied to the upper thigh. The lower extremity was prepped with alcohol, Hibiclens and ChloraPrep and draped in the usual manner with the knee draped free. An appropriate timeout procedure was carried out. An incision was made from about 3 fingerbreadths above the superior medial pole of patella down the tibial tubercle on the medial side. The incision was deepened through the subcutaneous tissue to the retinacular structures which were exposed medially and laterally. A medial retinacular incision was made from the superior medial pole of patella down the tibial tubercle and up into the quadriceps tendon, splitting it longitudinally in the medial one third. The patella was reflected. The infrapatellar fat pad was debulked. The anterior cruciate ligament was excised. Medial and lateral meniscectomies were initiated. Fenestrations were made in the distal femur and proximal tibia for intramedullary referencing guides. The distal femoral cutting guide and jig were assembled for a 5, 8 mm cut. When this was fit into position,the cutting block was stabilized with pins. The jig was removed. The distal femoral cut was completed with the oscillating saw. The sizing guide was positioned in place along Whitesides line and the epicondylar axis and stabilized with pins. The femoral size was determined as noted above. The 4-in-1 cutting block was positioned in place. Anterior and posterior cuts were made followed by posterior and anterior chamfer cuts taking care to prevent injury to ligamentous structures. Osteophytes were trimmed from the distal femur. A bone plug was placed into the fenestration of the distal femur. The proximal tibia was exposed. The medial and lateral meniscectomies were completed. The proximal tibial cutting guide was positioned in place and stabilized with a pin for rotation. The depth of cut was verified with a stylus off the high side. The cutting block was stabilized with pins. The jig was removed. The depth of cut was verified and adjusted appropriately with the use of the spacer block. The proximal tibial cut was made with the oscillating saw taking care to prevent injury to neurovascular and ligamentous structures. Proximal tibial bone was removed. Local anesthetic was administered with Exparel in the posterior capsule. The tibial baseplate trial was positioned in place. After verifying the appropriate size, the base plate trial was positioned in place along with its spacer. The femoral component was impacted into place. The alignment was checked. The tibial baseplate was pinned in place on the tibia. Attention was directed to the patella. The patella drill guide was positioned in place for the appropriate sized patella. Patellar drilling was then carried out. The trial patella was positioned in place. The knee was taken through a range of motion which was easily 0 extension to 130 degrees of flexion by gravity and 135 degrees of flexion with pressure. The patella trial was removed. The femoral drill holes were made. The femoral trials were removed. The tibial spacer was removed. A bone plug was placed into the proximal tibia. The tibial punch was impacted through the proximal tibial punch guide. This was all removed followed by placement of the tibial drill guide. The tibial drill holes were made. The guide was removed. The cut ends of bone were cleaned with pulse lavage. The tibial baseplate was impacted into place and seated appropriately. The spacer was inserted. The the femoral component was impacted into place and seated appropriately. The patella component was seated with the patellar vice and tightened appropriately. The knee was taken through a range of motion which was comparable to the previous range of motion with excellent stability in flexion and extension and appropriate patellofemoral tracking. The remainder of the Exparel was injected throughout the knee as a local anesthetic. Drains were brought out the superior lateral aspect of the suprapatellar pouch. Wound closure commenced using 0 Vicryl interrupted [id number] sutures for the capsular and fascial structures, 2-0 Vicryl interrupted simple sutures with buried knots for the subcutaneous tissues and 4-0 Monocryl, continuous subcuticular closure for the skin. The wound was dressed with Dermabond Prineo followed by a dry sterile dressing. Sterile soft roll with a cooling pad and Bryce bandage from the base of the toes to mid thigh were applied. Patient was transferred from the operating room to the recovery room in satisfactory condition having tolerated procedure well. Counts were correct. Specimens: None. Estimated blood loss: 250 mL
[2018-04-21] MEDS ORDERED: Post-op Orders (for Pharmacy) OTHER STA (09:55)
[2018-04-21] MEDS ORDERED: fentaNYL Citrate Inj 100 MCG/2 ML Ampul ONE (10:10)
[2018-04-21] MEDS ORDERED: Morphine Inj 4 MG/ML Vial ONE (10:10)
[2018-04-21] MEDS: Ketorolac Inj 30 MG/ML (IVP) Vial IV.PUSH SCH ×3 (10:14→22:50)
--- NOTE | 2018-04-21 10:41 | XR ---
EXAM DATE: 04/21/2018 6:41 AM EDT AGE/SEX: 68 years / Female INDICATIONS: Post op right knee surgery. CLINICAL DATA: This is the patient's initial encounter. Patient reports that signs and symptoms have been present for 1 day and indicates a pain score of 0/10. MEDICAL/SURGICAL HISTORY: None. None. COMPARISON: HPO, KNEE RIGHT COMPLETE (4VWS), 02/20/2017. . FINDINGS: AP and lateral views of the right knee were obtained and demonstrate the patient is status post total knee arthroplasty. The components are intact and in normal alignment. Surgical drain is noted. There is overlying artifact. CONCLUSION: Expected postoperative changes status post arthroplasty. Electronically signed by: Mitchell Sena MD 04/21/2018 10:40 AM EDT
[2018-04-21] MEDS ORDERED: Zolpidem Tartrate 5 MG Tablet PO PRN (21:00)
[2018-04-21] MEDS: Gabapentin 300 MG Capsule PO SCH (21:24)
[2018-04-21] MEDS: Senna/Docusate Sodium 8.6/50 MG Tablet PO SCH (21:25)
[2018-04-22 07:08] LABS: Hematocrit 31.8 % (35.0-46.0); Hemoglobin 10.9 gm/dL (11.6-15.3)
--- NOTE | 2018-04-22 07:47 | P.PNOP ---
Subjective Interval history: Postop day #1 She is doing relatively well. She had no pain yesterday but had difficulty walking because of nausea and vomiting. She had a general anesthetic. She has been up to the bedside commode using the walker several times overnight. She indicates that she lives alone and is anxious because she has a pacemaker/ defibrillator. She would prefer going to a nursing home facility ([facility]) for rehabilitation instead of going home. Physical therapy reports that the ambulation distance was 2 steps forward and 2 steps back. The range of motion was 0 degrees extension to 78 degrees of flexion. Physical Exam Vital signs: Vital Signs 04/21/18 09:45 04/21/18 09:54 04/21/18 10:00 Temperature 96.7 F L Pulse Rate 65 63 Respiratory Rate 20 16 Blood Pressure 115/58 L 112/57 L Pulse Oximetry 97 97 97 04/21/18 10:15 04/21/18 10:30 04/21/18 10:45 Temperature Pulse Rate 60 58 L 62 Respiratory Rate 24 14 20 Blood Pressure 110/55 L 108/57 L 116/56 L Pulse Oximetry 97 97 96 04/21/18 11:00 04/21/18 11:15 04/21/18 11:30 Temperature Pulse Rate 65 64 67 Respiratory Rate 25 H 19 18 Blood Pressure 123/62 118/58 L 123/58 L Pulse Oximetry 97 97 98 04/21/18 11:45 04/21/18 12:00 04/21/18 12:15 Temperature 98.4 F Pulse Rate 70 67 64 Respiratory Rate 17 21 15 Blood Pressure 136/61 130/60 142/67 H Pulse Oximetry 97 93 L 96 04/21/18 13:30 04/21/18 16:00 04/21/18 19:19 Temperature 97.4 F L 97.4 F L 98.3 F Pulse Rate 65 63 63 Respiratory Rate 16 16 18 Blood Pressure 130/61 174/79 H 176/84 H Pulse Oximetry 95 96 95 04/22/18 00:33 04/22/18 04:20 Temperature 97.5 F L 98.2 F Pulse Rate 65 67 Respiratory Rate 18 18 Blood Pressure 102/54 L 106/56 L Pulse Oximetry 94 L 96 Intake & Output 04/21/18 04/22/18 04/22/18 18:59 06:59 18:59 Intake Total 1660.35 / 1660.35 440 / 440 Output Total 250 / 250 230 / 230 Balance 1410.35 / 1410.35 210 / 210 Weight 103.4 kg Intake: IV 1160.35 / 1160.35 200 / 200 LR 1000 mL Inj 1,000 ML @ 30 1000 / 1000 mls/hr IV.SIG .Q24H LU Rx#: [id number] Cyklokapron Inj 1,035 MG In NS 110.35 / 110.35 Inj 100 ML @ 200 mls/hr IV.SIG ONCE LU Rx#:[id number] Ancef 2 GM Premix Inj 2 gm In 50 / 50 50 ml @ 100 mls/hr IV.SIG STEP FINISHER LU Rx#:[id number] Ancef Inj 1,000 MG In NS Inj 200 / 200 100 ML @ 200 mls/hr IV.SIG Q6H LU Rx#:[id number] Oral 240 / 240 Anesthesia Amount 500 / 500 Output: Estimated Blood Loss 250 / 250 Wound Drainage 230 / 230 # 1 Right Knee Hemovac 230 / 230 Other: # Voids 2 Date of Last Bowel Movement 04/20/18 # Bowel Movements 0 Narrative: She is resting comfortably, supine in bed. The dressing is dry and intact. Her neurovascular status is intact. Results - Labs CBC & Chem 7: 04/22/18 04:53 Laboratory Results - last 24 hr 04/22/18 04:53 Hgb 10.9 L Hct 31.8 L - Imaging Impressions Knee X-Ray 04/21/18 06:41 CONCLUSION: Expected postoperative changes status post arthroplasty. - Procedures Right total knee arthroplasty using Marj Triathlon prosthesis (uncemented) on 04/21/2018. Assessment and Plan - Ortho Post Op Day # 1 - Problem List (1) Status post total right knee replacement not using cement Code(s): Z96.651 - Presence of right artificial knee joint Status: Acute - Assessment and Plan Condition: Good. Orthopedically stable. DVT prophylaxis: TEDs, resumption of Eliquis, sequentials. Discharge plans: Home with home health care versus nursing home facility for rehabilitation ([facility]). An appointment was scheduled through the office. Prescriptions: Shelly 7.5/325; Patient is having significant pain caused by a right total knee replacement which will last more than 3 days. Trial of Tylenol has not helped. I believe that it is medically necessary to treat patients pain because it is affecting patients ability to participate in postoperative rehabilitation and perform activities of daily living in a comfortable and efficient manner.
--- NOTE | 2018-04-22 08:36 | P.DS ---
Date of admission: 04/21/18 05:21 Primary care physician: Lala Beltran MD Attending physician on discharge: Weston Aguirre Anticipated date of discharge: 04/24/18 Brief History from admission: This 68-year-old woman has had long-standing arthritis in her right knee that has been nonresponsive to conservative measures as detailed in the history and physical examination. She has been unable to take nonsteroidal anti- inflammatory agents because of the use of an anticoagulants. Physical findings showed some degenerative varum with medial tenderness and medial crepitation. There is an antalgic gait. X-rays showed loss of articular cartilage to bone-on -bone in the medial compartment with subchondral sclerosis and osteophytes. DS: Diagnosis - Discharge Diagnosis (1) Primary osteoarthritis of right knee Status: Chronic Diagnosis: Principal (2) Status post total right knee replacement not using cement Status: Acute Diagnosis: Principal DS: Medications - Discharge Medications Prescriptions: hydrocodone-acetaminophen 1 tab PO Q4H PRN 7 Days #42 tab PRN Reason: Pain, Severe DS: Summary Hospital Course: The patient was admitted as noted above. The above noted operative procedure was carried out that day. Preoperatively prophylactic antibiotics were administered Ancef according to protocol. These were continued postoperatively. The patient also received tranexamic acid to help with hemostasis according to protocol. In the postanesthesia care unit mechanical methods of DVT prophylaxis were initiated in the form of DOUG stockings and sequentials. Physical therapy was initiated on the day of surgery. On postoperative day #1 physical therapy continued. DVT prophylaxis with resumption of her Eliquis was initiated at this time. The patient continued physical therapy throughout the hospitalization. The distance walked and range of motion improved throughout the hospitalization. The patient was discharged on postoperative day 3 with the disposition being to a custodial facility. An appointment for follow-up was made prior to admission. - Time Spent with Patient Total time spent providing and/or coordinating discharge services: Greater than 30 minutes - Quality: VTE Deep Vein Thrombosis/Pulmonary Embolism Present on Admission: No Exam Vital signs: Vital Signs 04/21/18 09:45 04/21/18 09:54 04/21/18 10:00 Temperature 96.7 F L Pulse Rate 65 63 Respiratory Rate 20 16 Blood Pressure 115/58 L 112/57 L Pulse Oximetry 97 97 97 04/21/18 10:15 04/21/18 10:30 04/21/18 10:45 Temperature Pulse Rate 60 58 L 62 Respiratory Rate 24 14 20 Blood Pressure 110/55 L 108/57 L 116/56 L Pulse Oximetry 97 97 96 04/21/18 11:00 04/21/18 11:15 04/21/18 11:30 Temperature Pulse Rate 65 64 67 Respiratory Rate 25 H 19 18 Blood Pressure 123/62 118/58 L 123/58 L Pulse Oximetry 97 97 98 04/21/18 11:45 04/21/18 12:00 04/21/18 12:15 Temperature 98.4 F Pulse Rate 70 67 64 Respiratory Rate 17 21 15 Blood Pressure 136/61 130/60 142/67 H Pulse Oximetry 97 93 L 96 04/21/18 13:30 04/21/18 16:00 04/21/18 19:19 Temperature 97.4 F L 97.4 F L 98.3 F Pulse Rate 65 63 63 Respiratory Rate 16 16 18 Blood Pressure 130/61 174/79 H 176/84 H Pulse Oximetry 95 96 95 04/22/18 00:33 04/22/18 04:20 Temperature 97.5 F L 98.2 F Pulse Rate 65 67 Respiratory Rate 18 18 Blood Pressure 102/54 L 106/56 L Pulse Oximetry 94 L 96 Intake & Output 04/21/18 04/22/18 04/22/18 18:59 06:59 18:59 Intake Total 1660.35 / 1660.35 440 / 440 Output Total 250 / 250 230 / 230 Balance 1410.35 / 1410.35 210 / 210 Weight 103.4 kg Intake: IV 1160.35 / 1160.35 200 / 200 LR 1000 mL Inj 1,000 ML @ 30 1000 / 1000 mls/hr IV.SIG .Q24H LU Rx#: [id number] Cyklokapron Inj 1,035 MG In NS 110.35 / 110.35 Inj 100 ML @ 200 mls/hr IV.SIG ONCE LU Rx#:[id number] Ancef 2 GM Premix Inj 2 gm In 50 / 50 50 ml @ 100 mls/hr IV.SIG ALIGNER LU Rx#:[id number] Ancef Inj 1,000 MG In NS Inj 200 / 200 100 ML @ 200 mls/hr IV.SIG Q6H LU Rx#:[id number] Oral 240 / 240 Anesthesia Amount 500 / 500 Output: Estimated Blood Loss 250 / 250 Wound Drainage 230 / 230 # 1 Right Knee Hemovac 230 / 230 Other: # Voids 2 Date of Last Bowel Movement 04/20/18 # Bowel Movements 0 Narrative: She is resting comfortably, supine in bed. The dressing is dry and intact. Her neurovascular status is intact. Results Procedures completed during hospitalization: Right total knee arthroplasty using Marj Triathlon prosthesis (uncemented) on 04/21/2018. Labs on day of discharge: Labs from last 24 hours 04/22/18 04:53 Hgb 10.9 L Hct 31.8 L - Impressions ITS Impressions Knee X-Ray 04/21/18 06:41 CONCLUSION: Expected postoperative changes status post arthroplasty. Discharge Plan - Discharge Disposition Patient Disposition: Discharge to SNF - Discharge Condition Condition: Stable - Discharge Order Discharge Orders: Discharge Order (Routine); Ordered 04/24/18 Ordered By: Weston Aguirre - Discharge Details Anticipated Discharge Date: 04/24/18 - Physicians Team Primary Care Provider: Lala Beltran Attending Provider: Weston Aguirre Other Providers: Sebastian Tirado MD ; Shae Lindsey MD - Rxs /Orders / Referrals /Forms Prescriptions: New hydrocodone-acetaminophen 7.5-325 mg Tablet 1 tab PO Q4H PRN (Reason: Pain, Severe) 7 Days Qty: 42 RF: 0 Continue amiodarone 100 mg Tablet 100 mg PO 2XWEEK amiodarone 200 mg Tablet 200 mg PO 5XW apixaban [Eliquis] 5 mg Tablet 5 mg PO BID cholecalciferol (vitamin D3) [Vitamin D3] 1,000 unit Capsule 1,000 unit PO DAILY gabapentin 600 mg Tablet 600 mg PO HS gabapentin 300 mg Capsule 300 mg PO DAILY hydrochlorothiazide 25 mg Tablet 25 mg PO DAILY losartan 100 mg Tablet 100 mg PO DAILY [id number] K [Adults Multivitamin] 18 mg iron-400 mcg-25 mcg Tablet 1 tab PO DAILY Referrals: Weston Aguirre MD [Physician] - See Instructions Lala Beltran MD [Primary Care Provider] - See Instructions - Discharge Instructions Patient Printed Instructions: Knee Replacement (DC)
[2018-04-22] MEDS: hydroCHLOROthiazide 25 MG Tablet PO SCH (08:46)
[2018-04-22] MEDS: Senna/Docusate Sodium 8.6/50 MG Tablet PO SCH ×2 (08:47→20:03)
[2018-04-22] MEDS: Amiodarone 200 MG Tablet PO SCH (08:47)
[2018-04-22] MEDS: Gabapentin 300 MG Capsule PO SCH ×2 (08:48→20:02)
[2018-04-22] MEDS: Ketorolac Inj 30 MG/ML (IVP) Vial IV.PUSH SCH ×4 (09:12→21:09)
--- NOTE | 2018-04-22 09:21 | P.CONIM ---
History of Present Illness Consult date: 04/22/18 Requesting Physician: Weston Aguirre Reason for Consult: Opinion recommendation and treatment of patient's atrial fibrillation, slee Primary Care Provider: Lala Beltran MD History of Present Illness: 68-year-old pleasant female with a history of osteoarthritis, atrial fibrillation, fibromyalgia, hypertension, hypothyroidism, sleep apnea has had long-term history of right knee pain despite conservative treatment. She electively underwent a right total knee arthroplasty with Dr. Aguirre. She reports no complaint of chest pain or shortness of breath. In the past she had episode of V. tach and therefore was placed on amiodarone by her limb driver Dr. Tirado. She reports previous history of constipation. She has not had any blood in her stools or black tarry stools. At this time, patient reports her pain is fairly controlled. She has no complaint of chest pain nor any palpitations. Review of Systems All other systems reviewed negative except as stated in HPI PMFSH - History History Provided By: Patient - Medical History Medical History: Medical History (Last Reviewed 04/22/18 @ 09:12 by Shae Lindsey MD) Arthritis Atrial fibrillation Fibromyalgia High cholesterol History of anesthesia reaction Hypertension Hypothyroidism Joint pain Neck pain Peripheral neuropathy Sarcoidosis Sleep apnea with use of continuous positive airway pressure (CPAP) Uterine cancer V-tach Wears glasses - Surgical History Surgical History: Surgical History (Last Updated 04/22/18 @ 09:14 by Shae Lindsey MD) H/O colonoscopy AICD (automatic cardioverter/defibrillator) present History of arthroscopy of both knees History of breast lump removal History of hysterectomy History of partial thyroidectomy History of uvulopalatopharyngoplasty - Family History Family History: Family History (Last Updated 04/22/18 @ 09:15 by Shae Lindsey MD) Father Family history of acute myocardial infarction Mother Family history of diabetes mellitus - Social History I have reviewed the patient's Social History: Yes - Tobacco History Second Hand Smoke Exposure: No Smoking Status: Never smoker - Alcohol History How Often Do You Have a Drink Containing Alcohol: Monthly or less - Substance Use History Substance History: No History of Abuse - Travel History Recent Travel in the [place] Within the Last 8 Weeks: Yes Recent Travel Out of the Country Within the Last 8 Weeks: No - Immunization History Tetanus Immunization: Unsure Hx Influenza Vaccine This Season: No Medications and Allergies Active Medications: Active Medications Acetaminophen (Tylenol) 650 mg PO Q6H PRN PRN Reason: Pain Less Than 3 On Scale Hydrocodone Bitart/Acetaminophen ([place] 7.5/325) 1 tab PO Q4H PRN PRN Reason: PAIN SCALE 4 TO 6 MODERATE Last Admin: 04/21/18 19:12 Dose: 1 tab Hydrocodone Bitart/Acetaminophen ([place] 7.5/325) 2 tab PO Q6H PRN PRN Reason: PAIN SCALE 7 TO 10 SEVERE Last Admin: 04/22/18 06:44 Dose: 2 tab Al Hydrox/Mg Hydrox/Simethicone (Mag-Al Plus Susp Liq) 30 ml PO Q6H PRN PRN Reason: INDIGESTION Al Hydroxide/Mg Hydroxide (Milk Of Magnesia Liq) 30 ml PO BID PRN PRN Reason: Mild Constipation Amiodarone HCl (Cordarone) 200 mg PO [id number] [facility] Last Admin: 04/22/18 08:47 Dose: 200 mg Amiodarone HCl (Cordarone) 100 mg PO MoFr [facility] Apixaban (Eliquis) 5 mg PO BID [facility] Last Admin: 04/22/18 08:46 Dose: 5 mg Bisacodyl (Dulcolax Supp) 10 mg RECTAL DAILY PRN PRN Reason: SEVERE CONSITIPATION Chlorhexidine Gluconate (Hibiclens 4% Topical) 1 applicatio TOPICAL ONCE [facility] Stop: 04/25/18 05:59 Last Admin: 04/21/18 06:00 Dose: 1 applicatio Diphenhydramine HCl (Benadryl) 25 mg PO Q6H PRN PRN Reason: ITCHING Gabapentin (Neurontin) 300 mg PO DAILY [facility] Last Admin: 04/22/18 08:48 Dose: 300 mg Gabapentin (Neurontin) 600 mg PO HS [facility] Last Admin: 04/21/18 21:24 Dose: 600 mg Hydrochlorothiazide (Hydrodiuril) 25 mg PO DAILY [facility] Last Admin: 04/22/18 08:46 Dose: 25 mg Cefazolin Sodium/Dextrose (Ancef 2 Gm Premix Inj) 2 gm in 50 mls @ 100 mls/hr IV.SIG TURBOGENERATOR OPERATOR [facility] Stop: 04/25/18 05:59 Last Infusion: 04/21/18 07:47 Dose: Infused Sodium Chloride (Ns Inj) 500 mls @ 30 mls/hr IV.SIG .Q10H [facility] Last Admin: 04/21/18 06:19 Dose: Not Given Lactated Ringer's (Lr 1000 Ml Inj) 1,000 mls @ 80 mls/hr IV.CONT .[id number] [facility] Ketorolac Tromethamine (Toradol Inj) 15 mg IV.PUSH Q6H [facility] Stop: 04/23/18 04:01 Last Admin: 04/21/18 22:50 Dose: 15 mg Lactulose (Lactulose Liq) 30 ml PO DAILY PRN PRN Reason: SEVERE CONSITIPATION Losartan Potassium (Cozaar) 100 mg PO DAILY [facility] Last Admin: 04/22/18 08:47 Dose: 100 mg Miscellaneous Information ([place] Nursing Information) 0 each OTHER UNSCH PRN PRN Reason: SEE LABEL COMMENTS Stop: 04/22/18 09:54 Morphine Sulfate (Morphine Inj) 2 mg IV.PUSH Q3H PRN PRN Reason: BREAKTHROUGH PAIN Multivitamins (Theragran) 1 tab PO DAILY [facility] Last Admin: 04/22/18 08:47 Dose: 1 tab Ondansetron HCl (Zofran Odt) 4 mg PO Q6H PRN PRN Reason: NAUSEA OR VOMITING Last Admin: 04/21/18 17:58 Dose: 4 mg Senna/Docusate Sodium ([place]-Colace) 1 tab PO BID [facility] Last Admin: 04/22/18 08:47 Dose: 1 tab Sennosides (Senokot) 17.2 mg PO BID PRN PRN Reason: Moderate Constipation Sodium Chloride (Ns Flush) 2 ml IV.FLUSH BID [facility] Last Admin: 04/22/18 08:48 Dose: Not Given Sodium Chloride (Ns Flush) 2 ml IV.FLUSH PRN PRN PRN Reason: FLUSH AFTER USING IV ACCESS Vitamin D (Vitamin D3) 1,000 unit PO DAILY [facility] Last Admin: 04/22/18 08:47 Dose: 1,000 unit Zolpidem Tartrate (Ambien) 5 mg PO HS PRN PRN Reason: INSOMNIA Allergies Allergy/AdvReac Type Severity Reaction Status Date / Time adhesive Allergy Severe SKIN RASH Verified 04/09/18 09:22 diatrizoate meglumine Allergy Severe taccycardia Verified 04/09/18 09:22 gadobenic acid Allergy Severe taccycardia Verified 04/09/18 09:22 gadodiamide Allergy Severe taccycardia Verified 04/09/18 09:22 gadoteridol Allergy Severe taccycardia Verified 04/09/18 09:22 iodixanol Allergy Severe taccycardia Verified 04/09/18 09:22 iohexol Allergy Severe taccycardia Verified 04/09/18 09:22 rosuvastatin Allergy Severe Anaphylaxis Verified 04/09/18 09:22 Home Medications Medication Instructions Recorded Confirmed Type amiodarone 100 mg PO 2XWEEK 04/09/18 04/21/18 History amiodarone 200 mg PO 5XW 04/09/18 04/21/18 History apixaban [Eliquis] 5 mg PO BID 04/09/18 04/21/18 History cholecalciferol (vitamin D3) 1,000 unit PO DAILY 04/09/18 04/21/18 History [Vitamin D3] gabapentin 300 mg PO DAILY 04/09/18 04/21/18 History gabapentin 600 mg PO HS 04/09/18 04/21/18 History hydrochlorothiazide 25 mg PO DAILY 04/09/18 04/21/18 History losartan 100 mg PO DAILY 04/09/18 04/21/18 History nzmsyxbdibdw-cyg-[id number]-FA-vit K 1 tab PO DAILY 04/09/18 04/21/18 History [Adults Multivitamin] Exam Vital signs: Vital Signs 04/21/18 09:45 04/21/18 09:54 04/21/18 10:00 Temperature 96.7 F L Pulse Rate 65 63 Respiratory Rate 20 16 Blood Pressure 115/58 L 112/57 L Pulse Oximetry 97 97 97 04/21/18 10:15 04/21/18 10:30 04/21/18 10:45 Temperature Pulse Rate 60 58 L 62 Respiratory Rate 24 14 20 Blood Pressure 110/55 L 108/57 L 116/56 L Pulse Oximetry 97 97 96 04/21/18 11:00 04/21/18 11:15 04/21/18 11:30 Temperature Pulse Rate 65 64 67 Respiratory Rate 25 H 19 18 Blood Pressure 123/62 118/58 L 123/58 L Pulse Oximetry 97 97 98 04/21/18 11:45 04/21/18 12:00 04/21/18 12:15 Temperature 98.4 F Pulse Rate 70 67 64 Respiratory Rate 17 21 15 Blood Pressure 136/61 130/60 142/67 H Pulse Oximetry 97 93 L 96 04/21/18 13:30 04/21/18 16:00 04/21/18 19:19 Temperature 97.4 F L 97.4 F L 98.3 F Pulse Rate 65 63 63 Respiratory Rate 16 16 18 Blood Pressure 130/61 174/79 H 176/84 H Pulse Oximetry 95 96 95 04/22/18 00:33 04/22/18 04:20 04/22/18 08:00 Temperature 97.5 F L 98.2 F 98.4 F Pulse Rate 65 67 76 Respiratory Rate 18 18 16 Blood Pressure 102/54 L 106/56 L 125/58 L Pulse Oximetry 94 L 96 99 Intake & Output 04/21/18 04/22/18 04/22/18 18:59 06:59 18:59 Intake Total 1660.35 / 1660.35 440 / 440 Output Total 250 / 250 230 / 230 Balance 1410.35 / 1410.35 210 / 210 Weight 103.4 kg Intake: IV 1160.35 / 1160.35 200 / 200 LR 1000 mL Inj 1,000 ML @ 30 1000 / 1000 mls/hr IV.SIG .Q24H [facility] Rx#: [id number] Cyklokapron Inj 1,035 MG In NS 110.35 / 110.35 Inj 100 ML @ 200 mls/hr IV.SIG ONCE [facility] Rx#:[id number] Ancef 2 GM Premix Inj 2 gm In 50 / 50 50 ml @ 100 mls/hr IV.SIG TURBOGENERATOR OPERATOR [facility] Rx#:[id number] Ancef Inj 1,000 MG In NS Inj 200 / 200 100 ML @ 200 mls/hr IV.SIG Q6H [facility] Rx#:[id number] Oral 240 / 240 Anesthesia Amount 500 / 500 Output: Estimated Blood Loss 250 / 250 Wound Drainage 230 / 230 # 1 Right Knee Hemovac 230 / 230 Other: # Voids 2 Date of Last Bowel Movement 04/20/18 # Bowel Movements 0 Narrative: GENERAL: Well-nourished well-developed white female no acute distress laying in bed pleasant SKIN: Warm and dry. HEAD: Atraumatic. Normocephalic. EYES: Pupils equal and round. No scleral icterus. No injection or drainage. ENT: No nasal bleeding or discharge. Mucous membranes pink and moist. NECK: Trachea midline. No JVD. CARDIOVASCULAR: Regular rate and rhythm. RESPIRATORY: No accessory muscle use. Clear to auscultation. Breath sounds equal bilaterally. GASTROINTESTINAL: Abdomen soft, non-tender, nondistended. Hepatic and splenic margins not palpable. MUSCULOSKELETAL: Right lower extremity bandage clean dry intact, when the bandage was removed her surgical scar was clean dry and intact with no signs of bleeding. NEUROLOGICAL: Awake and alert to person place time situation. No obvious cranial nerve deficits. Motor grossly within normal limits. Five out of 5 muscle strength in the arms and legs. Normal speech. PSYCHIATRIC: Appropriate mood and affect; insight and judgment normal. Results - Labs CBC & Chem 7: 04/22/18 04:53 Labs: Laboratory Results - last 24 hr 04/22/18 04:53 Hgb 10.9 L Hct 31.8 L - Imaging Impressions Knee X-Ray 04/21/18 06:41 CONCLUSION: Expected postoperative changes status post arthroplasty. Assessment and Plan - Plan 68-year-old white female with osteoporosis admitted 1. Status post right total knee arthroplastycontinue postoperative care, pain control, physical therapy per orthopedic surgery Dr. Aguirre. Continue bowel regimen for history of constipation. Side effects and safe use of oral opiates discussed with the patient today. 2. History of atrial fibrillationcurrently in normal sinus rhythmcontinue with amiodarone, Eliquis has been restarted postoperatively. 3. Hypertensioncontinue HCTZ and losartan 4. Postoperative anemia due to postsurgical statusmonitor hemoglobin on Eliquis. 5. Morbid obesity with BMI > 40 - weight loss counseling. 6. DVT prophylaxisEliquis. Thank you for this consultation.
[2018-04-22] MEDS: Sodium Chlor 0.9% Inj 500 ML IV.SIG SCH (18:07)
[2018-04-23] MEDS: Ketorolac Inj 30 MG/ML (IVP) Vial IV.PUSH SCH (03:28)
[2018-04-23 07:07] LABS: Hematocrit 31.9 % (35.0-46.0); Hemoglobin 10.6 gm/dL (11.6-15.3)
--- NOTE | 2018-04-23 07:29 | P.PNOP ---
Subjective Interval history: Postop day #2 She is doing relatively well. She has minimal complaints related to the knee at this time. She is better today than she was yesterday. She has questions about how long she has to stay at the hospital before she can go to a retirement facility. Physical therapy reports that the ambulation distance was 15 feet. The range of motion was 0 degrees extension to 73 degrees of flexion. Physical Exam Vital signs: Vital Signs 04/22/18 08:00 04/22/18 12:00 04/22/18 16:00 Temperature 98.4 F 97.8 F 98.0 F Pulse Rate 76 60 67 Respiratory Rate 16 16 16 Blood Pressure 125/58 L 114/57 L 110/56 L Pulse Oximetry 99 97 98 04/22/18 18:54 04/22/18 22:54 04/22/18 23:59 Temperature 97.3 F L 98.4 F Pulse Rate 76 77 Respiratory Rate 16 16 18 Blood Pressure 134/63 124/55 L Pulse Oximetry 97 95 04/23/18 03:42 Temperature 98.8 F Pulse Rate 77 Respiratory Rate 16 Blood Pressure 138/66 Pulse Oximetry 94 L Intake & Output 04/22/18 04/23/18 04/23/18 18:59 06:59 18:59 Intake Total 400 / 400 Balance 400 / 400 Intake: Oral 400 / 400 Other: # Voids 3 Date of Last Bowel Movement 04/20/18 04/20/18 # Bowel Movements 0 Narrative: She is resting comfortably, supine in bed. The neurovascular status is intact. The dressing is dry and intact. Results - Labs CBC & Chem 7: 04/23/18 04:46 Laboratory Results - last 24 hr 04/23/18 04:46 Hgb 10.6 L Hct 31.9 L - Procedures Right total knee arthroplasty using Marj Triathlon prosthesis (uncemented) on 04/21/2018. Assessment and Plan - Ortho Post Op Day # 2 - Problem List (1) Primary osteoarthritis of right knee Code(s): M17.11 - Unilateral primary osteoarthritis, right knee Status: Chronic (2) Status post total right knee replacement not using cement Code(s): Z96.651 - Presence of right artificial knee joint Status: Acute Plan: I have had a lengthy discussion with her explaining to her that her range of motion on the operating table was 0 degrees extension to 130 degrees of flexion with gravity and 135 degrees of flexion with slight pressure. She should set that as a goal. She needs to avoid keeping the knee flexed while sleeping. She needs to work on extension as much as she works on flexion. I have explained to her that she needs to have 115 degrees of motion in order to easily step off a curb, go downstairs or go over the top on a standard bicycle. This should be the minimum goal. Ideally she should go to as close to 130 degrees as possible considering the soft tissues in her popliteal area. - Assessment and Plan Condition: Good. Orthopedically stable. DVT prophylaxis: TEDs, resumption of Eliquis, sequentials. Discharge plans: Home with home health care versus retirement facility for rehabilitation ([facility]). An appointment was scheduled through the office. Prescriptions: [place] 7.5/325; Patient is having significant pain caused by a right total knee replacement which will last more than 3 days. Trial of Tylenol has not helped. I believe that it is medically necessary to treat patients pain because it is affecting patients ability to participate in postoperative rehabilitation and perform activities of daily living in a comfortable and efficient manner.
[2018-04-23] MEDS: Gabapentin 300 MG Capsule PO SCH (08:28)
[2018-04-23] MEDS: hydroCHLOROthiazide 25 MG Tablet PO SCH (08:28)
[2018-04-23] MEDS: Senna/Docusate Sodium 8.6/50 MG Tablet PO SCH (08:29)
[2018-04-23 09:24] VITALS: PULSE 79
--- NOTE | 2018-04-23 10:18 | P.PN ---
Subjective Interval history: Patient doing well overnight. Reports that she did well with physical therapy. Patient is tolerating p.o., voiding/stooling well. No overnight concerns per RN. Physical Exam Vital signs: Vital Signs 04/22/18 12:00 04/22/18 16:00 04/22/18 18:54 Temperature 97.8 F 98.0 F 97.3 F L Pulse Rate 60 67 76 Respiratory Rate 16 16 16 Blood Pressure 114/57 L 110/56 L 134/63 Pulse Oximetry 97 98 97 04/22/18 22:54 04/22/18 23:59 04/23/18 03:42 Temperature 98.4 F 98.8 F Pulse Rate 77 77 Respiratory Rate 16 18 16 Blood Pressure 124/55 L 138/66 Pulse Oximetry 95 94 L 04/23/18 08:00 Temperature 98.2 F Pulse Rate 79 Respiratory Rate 22 Blood Pressure 133/60 Pulse Oximetry 94 L Intake & Output 04/22/18 04/23/18 04/23/18 18:59 06:59 18:59 Intake Total 400 / 400 Balance 400 / 400 Intake: Oral 400 / 400 Other: # Voids 3 Date of Last Bowel Movement 04/20/18 04/20/18 # Bowel Movements 0 Narrative: GENERAL: Well-nourished female, in NAD, lying comfortably in bed SKIN: Warm and dry. HEAD: Normocephalic. EYES: No scleral icterus. No injection or drainage. NECK: Supple, trachea midline. No JVD or lymphadenopathy. CARDIOVASCULAR: Regular rate and rhythm without murmurs, gallops, or rubs. RESPIRATORY: Breath sounds equal bilaterally. No accessory muscle use. GASTROINTESTINAL: Abdomen soft, non-tender, nondistended. MUSCULOSKELETAL: No cyanosis, or edema. Dressing over right knee clean dry intact. Motor system intact, no focal deficits. Strength 5/5 x4. BACK: Nontender without obvious deformity. No CVA tenderness. Results - Labs CBC & Chem 7: 04/23/18 04:46 Laboratory Results - last 24 hr 04/23/18 04:46 Hgb 10.6 L Hct 31.9 L - Procedures Right total knee arthroplasty using Marj Triathlon prosthesis (uncemented) on 04/21/2018. Assessment and Plan - Plan This is a 68-year-old CF with PMHx of AFib and HTN admitted due to OA of the Right Knee s/p right total knee arthroplasty on 04/21, POD #2 1. Post Op Care s/p Right total knee arthroplasty Continue postoperative care, pain control, physical therapy per orthopedic surgery Dr. Aguirre Continue bowel regimen for history of constipation Side effects and safe use of oral opiates discussed with the patient today Stable for D/C to SNF, [facility] today Per Ortho Reccs 04/23: Orthopedically stable. DVT prophylaxis: TEDs, resumption of Eliquis, sequentials. Discharge plans: Home with home health care versus half-way facility for rehabilitation ([facility]). An appointment was scheduled through the office. Prescriptions: [place] 7.5/325; Patient is having significant pain caused by a right total knee replacement which will last more than 3 days. Trial of Tylenol has not helped. I believe that it is medically necessary to treat patients pain because it is affecting patients ability to participate in postoperative rehabilitation and perform activities of daily living in a comfortable and efficient manner. 2. A. Fib Currently in normal sinus rhythm Continue home Amiodarone, Eliquis has been restarted postoperatively. 3. Hypertension Stable Continue home HCTZ and losartan 4. Postoperative Anemia due to postsurgical status Monitor hemoglobin on Eliquis Hgb 10.6 today from 10.9 5. Morbid obesity with BMI > 40 Weight loss counseling given 6. Neuropathy Cont. home Annmarie 7. DVT prophylaxisEliquis 8. Dispo: stable to D/C to SNF today, [facility] order placed by Ortho Discussed Condition With: patient, RN
[2018-04-23] MEDS: Amiodarone 200 MG Tablet PO SCH (10:39)
[2018-04-23 12:16] VITALS: BP 123/60; RESP 21; TEMP 98.5; O2SAT 92
[2018-04-24] MEDS ORDERED: Amiodarone 200 MG Tablet PO SCH (09:00)
== END 2018-04-23 16:00 ==
LOC: HSDI 05:21 → N06 12:35
PROVIDERS: ADMIT Orthopaedic Surgery; ATTEND Orthopaedic Surgery